=== PATIENT | female | born 1990 | race Hispanic/Latino ===

== ENCOUNTER 2016-09-03 08:12 | Emergency (ER) | payer OTHER ==
[2016-09-03 08:18] VITALS: BP 104/68; PULSE 81; RESP 18; TEMP 98.5; O2SAT 98
--- NOTE | 2016-09-03 08:40 | ED PDOC ---
HPI: Abdomen Time Seen by Provider: 09/03/16 08:21 Chief Complaint (Nursing): Abdominal Pain Chief Complaint (Provider): RUQ Abdominal Pain History Per: Patient History/Exam Limitations: no limitations Onset/Duration Of Symptoms: Days (x2) Current Symptoms Are (Timing): Still Present Location Of Pain/Discomfort: RUQ Associated Symptoms: Nausea. denies: Fever, Vomiting Additional Complaint(s): Jerri Dickinson is a 26 year old female with no past medical history that presents to the ED with a chief complaint of RUQ abdominal pain with associated nausea that she has been experiencing for the past two days. Patient states that her pain worsens after eating, and denies any vomiting or fever. Past Medical History Reviewed: Historical Data, Nursing Documentation, Vital Signs Vital Signs: Last Vital Signs Temp 98.5 F 09/03/16 08:33 Pulse 81 09/03/16 08:33 Resp 18 09/03/16 08:33 BP 104/68 09/03/16 08:33 Pulse Ox 98 09/03/16 08:43 - Medical History PMH: Depression - Surgical History Surgical History: (x 2) - Family History Family History: States: Unknown Family Hx - Home Medications Home Medications: Ambulatory Orders Medication Instructions Recorded Sertraline [Zoloft] 200 mg PO HS 10/19/14 Albuterol HFA [Ventolin HFA 90 2 puff IH [id number] PRN #1 bottle 03/12/15 mcg/actuation (8 g)] Azithromycin [Zithromax Z-Rush] 250 mg PO DAILY #4 tab 03/12/15 Ibuprofen [Motrin] 600 mg PO Q6 #20 tab 01/02/16 Benzocaine/Menthol [Sore Throat 1 each MM Q6 PRN #30 lozenge 05/19/16 Lozenge] guaiFENesin/Dextromethorphan 5 ml PO Q6 PRN #100 ml 05/19/16 [guaiFENesin-DM] Famotidine [Pepcid] 20 mg PO Q12 #20 tab 09/03/16 - Allergies Allergies/Adverse Reactions: Allergies Allergy/AdvReac Type Severity Reaction Status Date / Time metoclopramide HCl Allergy RASH Verified 09/03/16 08:32 [From [facility]] Review of Systems Constitutional: Negative for: Fever Gastrointestinal: Positive for: Nausea, Abdominal Pain (RUQ). Negative for: Vomiting Physical Exam - Reviewed Nursing Documentation Reviewed: Yes Vital Signs Reviewed: Yes - Physical Exam Appears: Positive for: Non-toxic, No Acute Distress Head Exam: Positive for: ATRAUMATIC, NORMOCEPHALIC Skin: Positive for: Normal Color, Warm Cardiovascular/Chest: Positive for: Regular Rate, Rhythm. Negative for: Murmur Respiratory: Positive for: Normal Breath Sounds. Negative for: Wheezing Gastrointestinal/Abdominal: Positive for: Tenderness (RUQ tenderness). Negative for: Rebound Back: Negative for: L CVA Tenderness, R CVA Tenderness Neurologic/Psych: Positive for: Alert, Oriented. Negative for: Motor/Sensory Deficits - Laboratory Results Result Diagrams: 09/03/16 08:53 09/03/16 08:53 - ECG O2 Sat by Pulse Oximetry: 98 (RA) Pulse Ox Interpretation: Normal - Progress Re-evaluation Time: 10:12 Condition: Improved Medical Decision Making Medical Decision Making: Impression: RUQ Abdominal Pain with Associated Nausea Plan: * CMP * CBC * Urine dipstick * Urine * US Abdomen (GB included) * Pepcid 20 mg IV * Reevaluation Scribe Attestation: Documented by Enid Valverde, acting as a scribe for Jay Weber MD. Provider Scribe Attestation: All medical record entries made by the Scribe were at my direction and personally dictated by me. I have reviewed the chart and agree that the record accurately reflects my personal performance of the history, physical exam, medical decision making, and the department course for this patient. I have also personally directed, reviewed, and agree with the discharge instructions and disposition. Disposition - Clinical Impression Clinical Impression: Gastritis - Patient ED Disposition Is Patient to be Admitted: No Counseled Patient/Family Regarding: Studies Performed, Diagnosis, Need For Followup, Rx Given - Disposition [facility]errals[facility] [Outside] Disposition: Routine/Home Disposition Time: 10:12 Condition: FAIR Prescriptions: Famotidine [Pepcid] 20 mg PO Q12 #20 tab Instructions: Gastritis (ED)
[2016-09-03 09:00] LABS: BASO % 0.6 % (0.0-2.0); EOS # 0.2 K/uL (0.0-0.7); EOS % 2.9 % (0.0-4.0); HEMATOCRIT 39.4 % (34.0-47.0); LYMPH # 1.2 K/uL (1.0-4.3); LYMPH % 15.3 % (20.0-40.0); MEAN CELL VOLUME 81.8 fl (81.0-99.0); MEAN CORPUSCULAR HEMOGLOBIN 27.3 pg (27.0-31.0); MEAN CORPUSCULAR HGB CONC 33.4 g/dL (33.0-37.0); MEAN PLATELET VOLUME 8.5 fl (7.2-11.7); MONO # 0.8 K/uL (0.0-0.8); MONO % 9.7 % (0.0-10.0); NEUT # 5.8 K/uL (1.8-7.0); NEUT % 71.5 % (50.0-75.0); NRBC % 0.1 % (0.0-0.0); RED CELL DISTRIBUTION WIDTH 12.2 % (11.5-14.5); WHITE BLOOD COUNT 8.1 K/uL (4.8-10.8)
[2016-09-03 09:17] LABS: ALB/GLOB RATIO 1.3 (1.0-2.1); ALKALINE PHOSPHATASE 53 U/L (38-126); ALT/SGPT 27 U/L (9-52); AST/SGOT 18 U/L (14-36); BILIRUBIN,TOTAL 0.3 mg/dl (0.2-1.3); BLOOD UREA NITROGEN 15 mg/dl (7-17); CALCIUM 8.8 mg/dL (8.4-10.2); CARBON DIOXIDE 27 mmol/L (22-30); CHLORIDE 103 mmol/L (98-107); GFR AFRICAN-AMERICAN > 60; GLUCOSE,RANDOM 86 mg/dL (65-105); POTASSIUM 3.9 MMOL/L (3.6-5.0); SODIUM 140 mmol/l (132-148); TOTAL PROTEIN 7.3 G/DL (6.3-8.2)
--- NOTE | 2016-09-03 10:08 | US ---
HISTORY: RUQ pain COMPARISON: None available. TECHNIQUE: Sonographic evaluation of the right upper quadrant of the abdomen. FINDINGS: LIVER: Measures 16 cm in length. Mildly echogenic liver may be seen in setting of hepatic parenchymal disease or fatty infiltration. No focal hepatic mass identified. The main portal vein appears patent with normal directional flow. No intrahepatic bile duct dilatation. GALLBLADDER: No gallstones. No gallbladder wall thickening or pericholecystic edema. Negative sonographic Akins's sign as assessed by the weight analyst. COMMON BILE DUCT: Measures 3 mm. PANCREAS: Not well visualized. RIGHT KIDNEY: Measures 10.7 x 5.9 x 4.9 cm. No obstructing calculus or hydronephrosis identified. AORTA: Limited visualization appears grossly unremarkable. IVC: Limited visualization appears grossly unremarkable. OTHER FINDINGS: None . IMPRESSION: Mildly echogenic liver may be seen in setting of hepatic parenchymal disease or fatty infiltration.
== END 2016-09-03 10:20 | disposition home or self-care (01) ==
LOC: H.ER 08:12
DX: K29.70 Gastritis, unspecified, without bleeding (principal); R11.0 Nausea

== ENCOUNTER 2016-12-27 12:22 | Emergency (ER) | payer OTHER ==
[2016-12-27 12:40] VITALS: BP 116/70; PULSE 71; RESP 20; TEMP 96; O2SAT 99
--- NOTE | 2016-12-27 13:31 | ED PDOC ---
HPI: General Adult Time Seen by Provider: 12/27/16 12:39 Chief Complaint (Nursing): Flu-like Symptoms Chief Complaint (Provider): Fatigue History Per: Patient History/Exam Limitations: no limitations Onset/Duration Of Symptoms: Days (past couple of months prior to arrival ) Current Symptoms Are (Timing): Still Present Additional Complaint(s): Jerri Dickinson is a 26 year old female with a past family history of Lupus and Thyroid disease presenting to the ED for an evaluation of increased fatigue, body aches, and headaches occurring for the past couple of months prior to arrival. The patient reports associated hair loss, chills at night, a rash localized to her hands and her face, and hematuria occurring last week. She also states she used to be active before, exercising frequently, but is not active anymore due to her increased fatigue. She denies any documented fever, cough, sneezing, rhinorrhea, ear pain, or sore throat. Of note, the patient has a follow up with her PMD next week. PMD: Willow Dunn MD Past Medical History Reviewed: Historical Data, Nursing Documentation, Vital Signs Vital Signs: Last Vital Signs Temp 96 F L 12/27/16 12:35 Pulse 71 12/27/16 12:35 Resp 20 12/27/16 12:35 BP 116/70 12/27/16 12:35 Pulse Ox 99 12/27/16 13:35 - Medical History PMH: Depression - Surgical History Surgical History: (x 2) - Family History Other Family History: Lupus and thyroid disease - Social History Current smoker - smoking cessation education provided: No Ex-Smoker (has not smoked in the last 12 months): No Alcohol: None Drugs: Denies - Home Medications Home Medications: Ambulatory Orders Medication Instructions Recorded Sertraline [Zoloft] 200 mg PO HS 10/19/14 Albuterol HFA [Ventolin HFA 90 2 puff IH [id number] PRN #1 bottle 03/12/15 mcg/actuation (8 g)] Azithromycin [Zithromax Z-Rush] 250 mg PO DAILY #4 tab 03/12/15 Ibuprofen [Motrin] 600 mg PO Q6 #20 tab 01/02/16 Benzocaine/Menthol [Sore Throat 1 each MM Q6 PRN #30 lozenge 05/19/16 Lozenge] guaiFENesin/Dextromethorphan 5 ml PO Q6 PRN #100 ml 05/19/16 [guaiFENesin-DM] Famotidine [Pepcid] 20 mg PO Q12 #20 tab 09/03/16 Vitamin B Complex [B Complex] 1 each PO DAILY #30 tablet NS 12/27/16 - Allergies Allergies/Adverse Reactions: Allergies Allergy/AdvReac Type Severity Reaction Status Date / Time metoclopramide HCl Allergy RASH Verified 09/03/16 08:32 [From [facility]] Review of Systems ROS Statement: Except As Marked, All Systems Reviewed And Found Negative Constitutional: Positive for: Chills, Other (fatigue; body aches). Negative for : Fever ENT: Negative for: Ear Pain, Nose Discharge (and no sneezing), Throat Pain Respiratory: Negative for: Cough Genitourinary Female: Positive for: Hematuria Skin: Positive for: Rash (localized to hands and face), Other (hair loss ) Neurological: Positive for: Headache Physical Exam - Reviewed Nursing Documentation Reviewed: Yes Vital Signs Reviewed: Yes - Physical Exam Appears: Positive for: Non-toxic, No Acute Distress Head Exam: Positive for: ATRAUMATIC, NORMOCEPHALIC Skin: Positive for: Rash (butterfly rash noted to face ) Cardiovascular/Chest: Positive for: Regular Rate, Rhythm Respiratory: Negative for: Respiratory Distress Neurologic/Psych: Positive for: Alert, Oriented - Laboratory Results Result Diagrams: 12/27/16 13:35 12/27/16 13:35 - ECG O2 Sat by Pulse Oximetry: 99 (RA) Pulse Ox Interpretation: Normal Medical Decision Making Medical Decision Making: Time: 12:39 Impression: Fatigue Plan: * Will complete CBC, CMP, and CPK due to familial history of Lupus and Thyroid disease. Collect urine due to noticing hematuria and muscle aches. * Reevaluation Upon reevaluation, all labs are normal. Discussed with patient to maintain follow up appointment with PMD. Given Vitamin B complex. Scribe Attestation: Documented by Yulia Jacobson, acting as a scribe for Marlene Em PA-C. Provider Scribe Attestation: All medical record entries made by the Scribe were at my direction and personally dictated by me. I have reviewed the chart and agree that the record accurately reflects my personal performance of the history, physical exam, medical decision making, and the department course for this patient. I have also personally directed, reviewed, and agree with the discharge instructions and disposition. Disposition - Clinical Impression Clinical Impression: Generalized muscle weakness - Disposition Referrals: [facility] [Outside] Disposition Time: 14:00 Condition: STABLE Prescriptions: Vitamin B Complex [B Complex] 1 each PO DAILY #30 tablet NS Instructions: Autoimmune Thyroid Disorders (ED) Forms: [employer] ([place])
[2016-12-27 13:49] LABS: BASO # 0.1 K/uL (0.0-0.2); BASO % 0.7 % (0.0-2.0); EOS # 0.2 K/uL (0.0-0.7); EOS % 2.6 % (0.0-4.0); HEMATOCRIT 42.7 % (34.0-47.0); LYMPH # 1.8 K/uL (1.0-4.3); LYMPH % 21.3 % (20.0-40.0); MEAN CORPUSCULAR HEMOGLOBIN 27.3 pg (27.0-31.0); MEAN CORPUSCULAR HGB CONC 33.3 g/dL (33.0-37.0); MEAN PLATELET VOLUME 8.5 fl (7.2-11.7); MONO # 0.7 K/uL (0.0-0.8); MONO % 8.6 % (0.0-10.0); NEUT # 5.5 K/uL (1.8-7.0); NEUT % 66.8 % (50.0-75.0); RED CELL DISTRIBUTION WIDTH 12.6 % (11.5-14.5); WHITE BLOOD COUNT 8.2 K/uL (4.8-10.8)
[2016-12-27 13:55] LABS: ALB/GLOB RATIO 1.4 (1.0-2.1); ALKALINE PHOSPHATASE 45 U/L (38-126); ALT/SGPT 27 U/L (9-52); AST/SGOT 22 U/L (14-36); BILIRUBIN,TOTAL 0.3 mg/dl (0.2-1.3); BLOOD UREA NITROGEN 18 mg/dl (7-17); CALCIUM 9.6 mg/dL (8.4-10.2); CARBON DIOXIDE 24 mmol/L (22-30); CHLORIDE 105 mmol/L (98-107); GFR AFRICAN-AMERICAN > 60; GLUCOSE,RANDOM 84 mg/dL (65-105); SODIUM 143 mmol/l (132-148); TOTAL PROTEIN 7.7 G/DL (6.3-8.2)
== END 2016-12-27 14:23 | disposition home or self-care (01) ==
LOC: H.ER 12:22
DX: M62.81 Muscle weakness (generalized) (principal); M32.9 Systemic lupus erythematosus, unspecified; E07.9 Disorder of thyroid, unspecified

== ENCOUNTER 2017-04-11 08:26 | Emergency (ER) | payer OTHER ==
[2017-04-11 08:28] VITALS: BMI 26.4
[2017-04-11] MEDS ORDERED: Sodium Chloride 0.9% 1,000 ML IV STA (10:04)
--- NOTE | 2017-04-11 10:08 | ED PDOC ---
HPI: General Adult Time Seen by Provider: 04/11/17 09:08 Chief Complaint (Nursing): Flu-like Symptoms Chief Complaint (Provider): Flu-like symptoms History Per: Patient History/Exam Limitations: no limitations Onset/Duration Of Symptoms: Days (2 days ago) Current Symptoms Are (Timing): Still Present Additional Complaint(s): 27 y/o female presents to the ED complaining of fever, sore throat, cough, and nausea, onset of 2 days. Of note, patient did not take Motrin or Tylenol today. pcp: Willow Dunn Past Medical History Reviewed: Historical Data, Nursing Documentation, Vital Signs Vital Signs: Last Vital Signs Temp 98.9 F 04/11/17 16:12 Pulse 89 04/11/17 16:12 Resp 19 04/11/17 16:12 BP 132/74 04/11/17 16:12 Pulse Ox 98 04/11/17 16:12 - Medical History PMH: Depression - Surgical History Surgical History: (x 2) - Family History Family History: States: Unknown Family Hx - Social History Current smoker - smoking cessation education provided: No Ex-Smoker (has not smoked in the last 12 months): No Alcohol: None Drugs: Denies - Home Medications Home Medications: Ambulatory Orders Medication Instructions Recorded Sertraline [Zoloft] 200 mg PO HS 10/19/14 Albuterol HFA [Ventolin HFA 90 2 puff IH [id number] PRN #1 bottle 03/12/15 mcg/actuation (8 g)] Azithromycin [Zithromax Z-Rush] 250 mg PO DAILY #4 tab 03/12/15 Ibuprofen [Motrin] 600 mg PO Q6 #20 tab 01/02/16 Benzocaine/Menthol [Sore Throat 1 each MM Q6 PRN #30 lozenge 05/19/16 Lozenge] guaiFENesin/Dextromethorphan 5 ml PO Q6 PRN #100 ml 05/19/16 [guaiFENesin-DM] Famotidine [Pepcid] 20 mg PO Q12 #20 tab 09/03/16 Vitamin B Complex [B Complex] 1 each PO DAILY #30 tablet NS 12/27/16 Naproxen [Naprosyn] 500 mg PO BID PRN #15 tablet 04/11/17 Oseltamivir Phosphate [Tamiflu] 75 mg PO BID #9 capsule 04/11/17 Promethazine/Codeine 5 ml PO Q6 PRN #100 ml 04/11/17 [Phenergan/Codeine Oral Syrup] - Allergies Allergies/Adverse Reactions: Allergies Allergy/AdvReac Type Severity Reaction Status Date / Time metoclopramide HCl Allergy RASH Verified 04/11/17 08:53 [From [facility]] Review of Systems ROS Statement: Except As Marked, All Systems Reviewed And Found Negative Constitutional: Positive for: Fever ENT: Positive for: Throat Pain Respiratory: Positive for: Cough Gastrointestinal: Positive for: Nausea Physical Exam - Reviewed Nursing Documentation Reviewed: Yes Vital Signs Reviewed: Yes - Physical Exam Appears: Positive for: Non-toxic, No Acute Distress Head Exam: Positive for: ATRAUMATIC Skin: Positive for: Normal Color, Warm Eye Exam: Positive for: Normal appearance, EOMI, PERRL ENT: Positive for: Normal ENT Inspection Neck: Positive for: Normal, Painless ROM, Supple Cardiovascular/Chest: Positive for: Regular Rate, Rhythm, Tachycardia. Negative for: Murmur Respiratory: Positive for: Normal Breath Sounds. Negative for: Respiratory Distress Gastrointestinal/Abdominal: Positive for: Normal Exam, Soft. Negative for: Tenderness Back: Positive for: Normal Inspection Extremity: Positive for: Normal ROM. Negative for: Pedal Edema, Deformity Neurologic/Psych: Positive for: Alert, Oriented. Negative for: Motor/Sensory Deficits - Laboratory Results Result Diagrams: 04/11/17 10:15 04/11/17 10:15 - ECG O2 Sat by Pulse Oximetry: 97 (RA) Pulse Ox Interpretation: Normal - Radiology X-Ray: Interpreted by Me X-Ray Interpretation: No Acute Disease Medical Decision Making Medical Decision Making: Time: --10:03 Impression: --Flu-like symptoms Plan: --labs --Ed Urine --Chest X-ray --Motin 600mg PO --IV Fluids --Zofran Inj 4 mg IV --Influenza A B --Rapid Strep Group Time: 12:44 Chest X-Ray FINDINGS: LUNGS: No active pulmonary disease. PLEURA: No significant pleural effusion identified. No pneumothorax apparent. CARDIOVASCULAR: Normal. OSSEOUS STRUCTURES: No significant abnormalities. VISUALIZED UPPER ABDOMEN: Normal. OTHER FINDINGS: None. IMPRESSION: No interval acute cardiopulmonary disease appreciated. Pt states she had blood-tinged emesis, reevaluation reveals minimal tenderness LUQ/LLQ, no guarding. CT ordered. Time: 15:00 Patient will be signed out to Dr. Moe Weems, pending CT and reevaluation. Scribe Attestation: Documented by Juancho Alberts and Suzanne Armijo acting as scribes for Carmenza Hoang MD. Provider Scribe Attestation: All medical record entries made by the Scribe were at my direction and personally dictated by me. I have reviewed the chart and agree that the record accurately reflects my personal performance of the history, physical exam, medical decision making, and the department course for this patient. I have also personally directed, reviewed, and agree with the discharge instructions and disposition Disposition - Clinical Impression Clinical Impression: Influenza B - Disposition Referrals: [facility] [Outside] Disposition: Transfer of Care Disposition Time: 15:00 Condition: GOOD Additional Instructions: Drink plenty of fluids. Follow up with your PCP in 2-3 days. Prescriptions: Naproxen [Naprosyn] 500 mg PO BID PRN #15 tablet PRN Reason: Pain, Moderate (4-7) Oseltamivir Phosphate [Tamiflu] 75 mg PO BID #9 capsule Promethazine/Codeine [Phenergan/Codeine Oral Syrup] 5 ml PO Q6 PRN #100 ml PRN Reason: Cough Instructions: Influenza (ED) Patient Signed Over To: Moe Weems (Pending CT )
[2017-04-11 10:29] LABS: BASO % 0.4 % (0.0-2.0); EOS # 0.1 K/uL (0.0-0.7); HEMOGLOBIN 13.3 g/dL (12.0-16.0); LYMPH # 0.7 K/uL (1.0-4.3); LYMPH % 10.3 % (20.0-40.0); MEAN CELL VOLUME 83.6 fl (81.0-99.0); MEAN CORPUSCULAR HEMOGLOBIN 27.9 pg (27.0-31.0); MEAN CORPUSCULAR HGB CONC 33.4 g/dL (33.0-37.0); MEAN PLATELET VOLUME 8.7 fl (7.2-11.7); MONO # 0.8 K/uL (0.0-0.8); MONO % 10.7 % (0.0-10.0); NEUT # 5.7 K/uL (1.8-7.0); NEUT % 77.6 % (50.0-75.0); NRBC % 0.1 % (0.0-0.0); RBC 4.77 Mil/uL (3.80-5.20); RED CELL DISTRIBUTION WIDTH 12.9 % (11.5-14.5); WHITE BLOOD COUNT 7.3 K/uL (4.8-10.8)
[2017-04-11 11:05] LABS: ALB/GLOB RATIO 1.3 (1.0-2.1); ALT/SGPT 33 U/L (9-52); AST/SGOT 22 U/L (14-36); BLOOD UREA NITROGEN 10 mg/dl (7-17); CALCIUM 8.7 mg/dL (8.4-10.2); GFR AFRICAN-AMERICAN > 60; GFR NON-AFRICAN AMERICAN > 60
[2017-04-11 11:25] VITALS: RESP 19
[2017-04-11] MEDS ORDERED: Acetaminophen-Codeine 300/30 mg Tab PO STA (11:28)
[2017-04-11] MEDS ORDERED: Iohexol 300 100 ML IJ ONE (12:39)
[2017-04-11] MEDS ORDERED: Sodium Chloride 0.9% 50 ML IV ONE (12:39)
[2017-04-11] MEDS ORDERED: Morphine 4 MG/ML VIAL ONE ×2 (12:46→13:13)
--- NOTE | 2017-04-11 12:46 | RAD ---
HISTORY: Cough COMPARISON: Chest radiographs 03/12/2015. TECHNIQUE: Chest PA and lateral FINDINGS: LUNGS: No active pulmonary disease. PLEURA: No significant pleural effusion identified. No pneumothorax apparent. CARDIOVASCULAR: Normal. OSSEOUS STRUCTURES: No significant abnormalities. VISUALIZED UPPER ABDOMEN: Normal. OTHER FINDINGS: None. IMPRESSION: No interval acute cardiopulmonary disease appreciated.
[2017-04-11] MEDS ORDERED: Morphine 4 MG/ML VIAL IV STA (13:07)
--- NOTE | 2017-04-11 15:33 | ED PDOC ---
- Laboratory Results Result Diagrams: 04/11/17 10:15 04/11/17 10:15 - ECG O2 Sat by Pulse Oximetry: 97 (RA) - Progress Re-evaluation Time: 15:52 Condition: Re-examined, Improved Medical Decision Making Medical Decision Making: Time: 15:00 Patient is signed to me by Dr. Carmenza Hoang, pending CT and reevaluation. Time: 15:45 CT Abdomen/Pelvis: FINDINGS: LOWER THORAX: Unremarkable. LIVER: There 1 or 2 tiny lesions seen in the dome on right lobe liver too small to characterize the liver is not enlarged. Mild diffuse fatty infiltration liver is encountered. GALLBLADDER AND BILE DUCTS: Unremarkable. PANCREAS: Unremarkable. No gross lesion or ductal dilatation. SPLEEN: Unremarkable. ADRENALS: Unremarkable. No mass. KIDNEYS AND URETERS: Unremarkable. No hydronephrosis. No solid mass. VASCULATURE: Unremarkable. No aortic aneurysm. BOWEL: Stomach is distended with retained food moderately. No obstruction. No gross mural thickening. APPENDIX: Normal appendix. PERITONEUM: Unremarkable. No free fluid. No free air. LYMPH NODES: Unremarkable. No enlarged lymph nodes. BLADDER: Unremarkable. REPRODUCTIVE: There is a 1.9 x 1.6 cm left adnexal cyst with the uterus also appearing somewhat enlarged without focal mass. BONES: No acute fracture. OTHER FINDINGS: None. IMPRESSION: 1. Hepatic steatosis with 2 tiny lucencies too small to characterize in the liver. 2. 1.9 cm left adnexal cyst. Time: 1550 Patient is comfortably sleeping. Patient is significantly improved. No vomiting. She agrees with the discharge at this time. Scribe Attestation: Documented by Suzanne Armijo, acting as a scribe for Moe Weems MD Provider Scribe Attestation: All medical record entries made by the Scribe were at my direction and personally dictated by me. I have reviewed the chart and agree that the record accurately reflects my personal performance of the history, physical exam, medical decision making, and the department course for this patient. I have also personally directed, reviewed, and agree with the discharge instructions and disposition. Disposition - Clinical Impression Clinical Impression: Influenza B - POA Present On Arrival: None - Disposition Referrals: [facility] [Outside] Disposition: Routine/Home Disposition Time: 15:52 Condition: GOOD Additional Instructions: Drink plenty of fluids. Follow up with your PCP in 2-3 days. Prescriptions: Naproxen [Naprosyn] 500 mg PO BID PRN #15 tablet PRN Reason: Pain, Moderate (4-7) Oseltamivir Phosphate [Tamiflu] 75 mg PO BID #9 capsule Promethazine/Codeine [Phenergan/Codeine Oral Syrup] 5 ml PO Q6 PRN #100 ml PRN Reason: Cough Instructions: Influenza (ED)
--- NOTE | 2017-04-11 15:47 | CT ---
PROCEDURE: CT Abdomen and Pelvis with contrast HISTORY: L sided abd pain COMPARISON: None. TECHNIQUE: Contrast dose: Omnipaque 300, 98 cc Radiation dose: Total exam DLP = 657.35 mGy-cm. This CT exam was performed using one or more of the following dose reduction techniques: Automated exposure control, adjustment of the mA and/or kV according to patient size, and/or use of iterative reconstruction technique. FINDINGS: LOWER THORAX: Unremarkable. LIVER: There 1 or 2 tiny lesions seen in the dome on right lobe liver too small to characterize the liver is not enlarged. Mild diffuse fatty infiltration liver is encountered. GALLBLADDER AND BILE DUCTS: Unremarkable. PANCREAS: Unremarkable. No gross lesion or ductal dilatation. SPLEEN: Unremarkable. ADRENALS: Unremarkable. No mass. KIDNEYS AND URETERS: Unremarkable. No hydronephrosis. No solid mass. VASCULATURE: Unremarkable. No aortic aneurysm. BOWEL: Stomach is distended with retained food moderately. No obstruction. No gross mural thickening. APPENDIX: Normal appendix. PERITONEUM: Unremarkable. No free fluid. No free air. LYMPH NODES: Unremarkable. No enlarged lymph nodes. BLADDER: Unremarkable. REPRODUCTIVE: There is a 1.9 x 1.6 cm left adnexal cyst with the uterus also appearing somewhat enlarged without focal mass. BONES: No acute fracture. OTHER FINDINGS: None. IMPRESSION: 1. Hepatic steatosis with 2 tiny lucencies too small to characterize in the liver. 2. 1.9 cm left adnexal cyst.
[2017-04-11 16:13] VITALS: BP 132/74; PULSE 89; TEMP 98.9
[2017-04-12 16:34] VITALS: O2SAT 97
== END 2017-04-11 16:16 | disposition home or self-care (01) ==
LOC: H.ER 08:26
DX: K76.0 Fatty (change of) liver, not elsewhere classified (principal); N83.8 Other noninflammatory disorders of ovary, fallopian tube and broad ligament; J10.1 Influenza due to other identified influenza virus with other respiratory manifestations; F32.9 Major depressive disorder, single episode, unspecified; R11.0 Nausea
CPT/HCPCS: 71046; 74177; 80053; 81025; 85025; 87070; 87430; 87804; 96374; 96375; 99285; J2270; J2405; J2550; J7040; Q9967

== ENCOUNTER 2017-04-13 14:30 | Emergency (ER) | payer OTHER ==
[2017-04-13 14:31] VITALS: BMI 26.4
[2017-04-13 14:37] VITALS: BP 129/84; PULSE 94; RESP 18; TEMP 98; O2SAT 98
[2017-04-13] MEDS ORDERED: Promethazine/Cod 6.25mg-10mg/5ml Syr UD PO STA (15:16)
--- NOTE | 2017-04-13 15:27 | ED PDOC ---
HPI: General Adult Time Seen by Provider: 04/13/17 15:03 Chief Complaint (Nursing): GI Problem Chief Complaint (Provider): Flu-like Symptoms History Per: Patient History/Exam Limitations: no limitations Onset/Duration Of Symptoms: Days (x 4) Current Symptoms Are (Timing): Still Present Additional Complaint(s): 27 year old female presents to the Emergency Department complaining of persistent cough for the past 4 days. Was seen here 2 days ago, diagnosed with the flu, and discharged home with Promethazine/Codeine and Tamiflu. She reports taking the Tamiflu as prescribed but states she ran out of the Promethazine. Now complaining of worsening throat pain and difficulty swallowing, as well as spitting up some blood (after a coughing fit). Patient requesting a refill for the promethazine. There are no changes in symptoms from previous visit. She continues to have nausea, vomiting, and some abdominal discomfort. CT Abdomen/ Pelvis from her prior visit was negative. Has bodyaches. No dizziness, headaches. PMD: Provider TBD Past Medical History Reviewed: Historical Data, Nursing Documentation, Vital Signs Vital Signs: Last Vital Signs Temp 98 F 04/13/17 14:33 Pulse 94 H 04/13/17 14:33 Resp 18 04/13/17 14:33 BP 129/84 04/13/17 14:33 Pulse Ox 98 04/13/17 15:36 - Medical History PMH: No Chronic Diseases, Depression - Surgical History Surgical History: (x 2) - Family History Family History: States: Unknown Family Hx - Living Arrangements Living Arrangements: With Family - Social History Current smoker - smoking cessation education provided: No Alcohol: None Drugs: Denies - Home Medications Home Medications: Ambulatory Orders Medication Instructions Recorded Sertraline [Zoloft] 200 mg PO HS 10/19/14 Albuterol HFA [Ventolin HFA 90 2 puff IH [id number] PRN #1 bottle 03/12/15 mcg/actuation (8 g)] Azithromycin [Zithromax Z-Rush] 250 mg PO DAILY #4 tab 03/12/15 Ibuprofen [Motrin] 600 mg PO Q6 #20 tab 01/02/16 Benzocaine/Menthol [Sore Throat 1 each MM Q6 PRN #30 lozenge 05/19/16 Lozenge] guaiFENesin/Dextromethorphan 5 ml PO Q6 PRN #100 ml 05/19/16 [guaiFENesin-DM] Famotidine [Pepcid] 20 mg PO Q12 #20 tab 09/03/16 Vitamin B Complex [B Complex] 1 each PO DAILY #30 tablet NS 12/27/16 Naproxen [Naprosyn] 500 mg PO BID PRN #15 tablet 04/11/17 Oseltamivir Phosphate [Tamiflu] 75 mg PO BID #9 capsule 04/11/17 Promethazine/Codeine 5 ml PO Q6 PRN #100 ml 04/11/17 [Phenergan/Codeine Oral Syrup] Benzonatate [Tessalon Perles] 100 mg PO BID PRN 5 Days sgl 04/13/17 Ibuprofen [Motrin] 600 mg PO TID 7 Days tab 04/13/17 Promethazine/Codeine 5 ml PO Q6 PRN 3 Days udc 04/13/17 [Phenergan/Codeine Oral Syrup] - Allergies Allergies/Adverse Reactions: Allergies Allergy/AdvReac Type Severity Reaction Status Date / Time metoclopramide HCl Allergy RASH Verified 04/11/17 08:53 [From [facility]] Review of Systems ROS Statement: Except As Marked, All Systems Reviewed And Found Negative Constitutional: Positive for: Weakness (generalized weakness). Negative for: Fever ENT: Positive for: Throat Pain, Other (Difficulty swallowing) Cardiovascular: Negative for: Chest Pain Respiratory: Positive for: Cough, Other (spit up some blood after coughing fit) . Negative for: Shortness of Breath Gastrointestinal: Positive for: Nausea, Vomiting, Abdominal Pain. Negative for : Diarrhea Neurological: Positive for: Weakness Physical Exam - Reviewed Nursing Documentation Reviewed: Yes Vital Signs Reviewed: Yes - Physical Exam Appears: Positive for: Non-toxic, No Acute Distress Head Exam: Positive for: ATRAUMATIC, NORMOCEPHALIC Skin: Positive for: Normal Color, Warm, Dry Eye Exam: Positive for: EOMI, Normal appearance, PERRL ENT: Positive for: Nasal Congestion. Negative for: Pharyngeal Erythema, Tonsillar Exudate Neck: Positive for: Normal, Painless ROM, Supple Cardiovascular/Chest: Positive for: Regular Rate, Rhythm, Chest Non Tender. Negative for: Murmur Respiratory: Positive for: Normal Breath Sounds. Negative for: Accessory Muscle Use, Rhonchi, Wheezing, Respiratory Distress Gastrointestinal/Abdominal: Positive for: Normal Exam, Soft. Negative for: Tenderness Back: Positive for: Normal Inspection. Negative for: L CVA Tenderness, R CVA Tenderness, Vertebral Tenderness Extremity: Positive for: Normal ROM. Negative for: Tenderness, Pedal Edema, Deformity Neurologic/Psych: Positive for: Alert, Oriented (x3). Negative for: Motor/ Sensory Deficits - ECG O2 Sat by Pulse Oximetry: 98 (RA) Pulse Ox Interpretation: Normal - Progress ED Course And Treament: 1600: Stable. AAOx3. Pain free. Tolerated po. Demanding promethazine with codeine. Will rx accordingly. Reviewed pt. PM Aware data for narcotics use. No abuse noted. Pt. advised risk of addiction and from narcotic use. Medical Decision Making Medical Decision Making: Clinical Impression: Influenza, Pain Time: 15:16 Initial Plan: --Toradol 15 mg IM --Promethazine/Codeine 5 ml PO Stable for discharge. Will provide prescriptions for Motrin, Promethazine/ Codeine, and Tessalon Perles. Counseled regarding diagnosis and the need for follow up with PMD. There is agreement to discharge plan. Return if symptoms persist or worsen. Scribe Attestation: Documented by Kandi Kirk, acting as a scribe for Luan Michel MD Provider Scribe Attestation: All medical record entries made by the Scribe were at my direction and personally dictated by me. I have reviewed the chart and agree that the record accurately reflects my personal performance of the history, physical exam, medical decision making, and the department course for this patient. I have also personally directed, reviewed, and agree with the discharge instructions and disposition Disposition - Clinical Impression Clinical Impression: Influenza, Pain - Patient ED Disposition Is Patient to be Admitted: No - Disposition Referrals: [facility] [Outside] - 04/15/17 Disposition: Routine/Home Disposition Time: 16:00 Condition: STABLE Additional Instructions: You have been made aware of the addictive potential of opiates like codeine. You can from the overuse of this medication. Return if not better in 3 days. Prescriptions: Benzonatate [Tessalon Perles] 100 mg PO BID PRN 5 Days sgl PRN Reason: Cough Ibuprofen [Motrin] 600 mg PO TID 7 Days tab Promethazine/Codeine [Phenergan/Codeine Oral Syrup] 5 ml PO Q6 PRN 3 Days udc PRN Reason: Pain, Moderate (4-7) Instructions: Influenza (ED), Opioid Pain Management (ED) Forms: [employer] (Czech)
[2017-04-13] MEDS ORDERED: Promethazine/Cod 6.25mg-10mg/5ml Syr UD ONE (15:42)
== END 2017-04-13 15:56 | disposition home or self-care (01) ==
LOC: H.ER 14:30
DX: J11.1 Influenza due to unidentified influenza virus with other respiratory manifestations (principal); R13.10 Dysphagia, unspecified
CPT/HCPCS: 96372; 99283; J1885

== ENCOUNTER 2017-09-01 17:54 | Emergency (ER) | payer OTHER ==
[2017-09-01 17:54] VITALS: BMI 26.4
[2017-09-01 18:02] VITALS: RESP 18
[2017-09-01] MEDS ORDERED: Sodium Chloride 0.9% 1,000 ML IV STA ×2 (18:26→19:55)
[2017-09-01 18:57] LABS: BASO # 0.1 K/uL (0.0-0.2); BASO % 0.8 % (0.0-2.0); EOS # 0.4 K/uL (0.0-0.7); EOS % 4.4 % (0.0-4.0); HEMOGLOBIN 13.9 g/dL (12.0-16.0); LYMPH % 19.4 % (20.0-40.0); MEAN CELL VOLUME 82.1 fl (81.0-99.0); MEAN CORPUSCULAR HEMOGLOBIN 28.2 pg (27.0-31.0); MEAN CORPUSCULAR HGB CONC 34.4 g/dL (33.0-37.0); MEAN PLATELET VOLUME 8.4 fl (7.2-11.7); NEUT # 6.6 K/uL (1.8-7.0); NEUT % 65.4 % (50.0-75.0); RBC 4.92 Mil/uL (3.80-5.20); RED CELL DISTRIBUTION WIDTH 12.6 % (11.5-14.5); WHITE BLOOD COUNT 10.1 K/uL (4.8-10.8)
[2017-09-01 19:03] LABS: SQUAMOUS EPITHIAL 4 /hpf (0-5); URINE AMORPHOUS SEDIMENT RARE /ul (<OCC); URINE BACTERIA RARE (<OCC); URINE BILIRUBIN NEGATIVE (NEGATIVE); URINE BLOOD NEGATIVE (NEGATIVE); URINE CLARITY CLOUDY (Clear); URINE COLOR YELLOW (YELLOW); URINE GLUCOSE (UA) NEG (Normal); URINE LEUKOCYTE ESTERASE NEG Leu/uL (Negative); URINE PROTEIN NEGATIVE (NEGATIVE); URINE UROBILINOGEN 0.2-1.0 mg/dL (0.2-1.0)
[2017-09-01 19:09] LABS: ALB/GLOB RATIO 1.3 (1.0-2.1); ALBUMIN 4.2 g/dL (3.5-5.0); ALT/SGPT 31 U/L (9-52); AST/SGOT 25 U/L (14-36); BLOOD UREA NITROGEN 19 mg/dl (7-17); CALCIUM 9.1 mg/dL (8.4-10.2); GFR AFRICAN-AMERICAN > 60; GFR NON-AFRICAN AMERICAN > 60
[2017-09-01 19:11] LABS: PROTHROMBIN TIME 10.4 Seconds (9.8-13.1)
[2017-09-01 19:12] LABS: INR 0.9 (0.9-1.2); PARTIAL THROMBOPLASTIN TIME 28.6 Seconds (25.6-37.1)
--- NOTE | 2017-09-01 19:20 | ED PDOC ---
Syncope/Near Syncope/Dizziness Time Seen by Provider: 09/01/17 18:12 Chief Complaint (Nursing): Syncope Chief Complaint (Provider): Vertigo History Per: Patient History/Exam Limitations: no limitations Onset/Duration Of Symptoms: Hrs (10am) Activity At Onset Of Symptoms: Walking Additional Complaint(s): 27 year old female presents to the ED complaining of feeling dizziness today at 10am. Patient was walking and felt light headedness. She passed out for 2 minutes as witnessed by mother. When EMS arrived, patient refused to go to the hospital. When she went home, she felt dizzy again. She states she has been on her period for 3 days and is bleeding normally. Denies seizure activity or ictal period. Also denies headache, visual changes, abdominal pain, chest pain, or prolonged dizziness in the past. PMD: No Provider Past Medical History Reviewed: Historical Data, Nursing Documentation, Vital Signs Vital Signs: Last Vital Signs Temp 98.3 F 09/01/17 17:58 Pulse 91 H 09/01/17 17:58 Resp 18 09/01/17 17:58 BP 112/75 09/01/17 17:58 Pulse Ox 100 09/01/17 17:58 - Medical History PMH: Depression - Surgical History Surgical History: (x 2) - Family History Family History: States: Unknown Family Hx - Social History Current smoker - smoking cessation education provided: No Alcohol: None Drugs: Denies - Immunization History Hx Tetanus Toxoid Vaccination: No Hx Influenza Vaccination: No Hx Pneumococcal Vaccination: No - Home Medications Home Medications: Ambulatory Orders Medication Instructions Recorded Sertraline [Zoloft] 200 mg PO HS 10/19/14 Albuterol HFA [Ventolin HFA 90 2 puff IH [id number] PRN #1 bottle 03/12/15 mcg/actuation (8 g)] Azithromycin [Zithromax Z-Rush] 250 mg PO DAILY #4 tab 03/12/15 Ibuprofen [Motrin] 600 mg PO Q6 #20 tab 01/02/16 Benzocaine/Menthol [Sore Throat 1 each MM Q6 PRN #30 lozenge 05/19/16 Lozenge] guaiFENesin/Dextromethorphan 5 ml PO Q6 PRN #100 ml 05/19/16 [guaiFENesin-DM] Famotidine [Pepcid] 20 mg PO Q12 #20 tab 09/03/16 Vitamin B Complex [B Complex] 1 each PO DAILY #30 tablet NS 12/27/16 Naproxen [Naprosyn] 500 mg PO BID PRN #15 tablet 04/11/17 Oseltamivir Phosphate [Tamiflu] 75 mg PO BID #9 capsule 04/11/17 Promethazine/Codeine 5 ml PO Q6 PRN #100 ml 04/11/17 [Phenergan/Codeine Oral Syrup] Benzonatate [Tessalon Perles] 100 mg PO BID PRN 5 Days sgl 04/13/17 Ibuprofen [Motrin] 600 mg PO TID 7 Days tab 04/13/17 Promethazine/Codeine 5 ml PO Q6 PRN 3 Days udc 04/13/17 [Phenergan/Codeine Oral Syrup] Meclizine [Meclizine*] 25 mg PO Q6 PRN #20 tab 09/01/17 Naproxen [Naprosyn] 500 mg PO BID PRN #15 tablet 09/01/17 - Allergies Allergies/Adverse Reactions: Allergies Allergy/AdvReac Type Severity Reaction Status Date / Time metoclopramide HCl Allergy RASH Verified 04/11/17 08:53 [[facility] Review of Systems ROS Statement: Except As Marked, All Systems Reviewed And Found Negative Eyes: Negative for: Vision Change Cardiovascular: Negative for: Chest Pain Gastrointestinal: Negative for: Abdominal Pain Neurological: Positive for: Dizziness. Negative for: Headache Physical Exam - Reviewed Nursing Documentation Reviewed: Yes Vital Signs Reviewed: Yes - Physical Exam Appears: Positive for: Well, Non-toxic, No Acute Distress Head Exam: Positive for: ATRAUMATIC, NORMAL INSPECTION, NORMOCEPHALIC Skin: Positive for: Normal Color, Warm, Dry Eye Exam: Positive for: EOMI, Normal appearance, PERRL ENT: Positive for: Normal ENT Inspection Neck: Positive for: Normal, Painless ROM, Supple. Negative for: Decreased ROM Cardiovascular/Chest: Positive for: Regular Rate, Rhythm. Negative for: Murmur Respiratory: Positive for: Normal Breath Sounds. Negative for: Decreased Breath Sounds, Accessory Muscle Use, Respiratory Distress Gastrointestinal/Abdominal: Positive for: Normal Exam, Bowel Sounds, Soft. Negative for: Tenderness, Guarding, Rebound Extremity: Positive for: Normal ROM. Negative for: Tenderness, Pedal Edema, Deformity Neurologic/Psych: Positive for: Alert, armature connector II-XII, Oriented (x3), Gait (Steady) . Negative for: Motor/Sensory Deficits, Aphasia, Facial Droop - Laboratory Results Result Diagrams: 09/01/17 18:53 09/01/17 18:53 - ECG O2 Sat by Pulse Oximetry: 100 (RA) Pulse Ox Interpretation: Normal Medical Decision Making Medical Decision Making: Time: 1825 Initial Impression: dizziness Initial Plan: --Head w/o Contrast CT --EKG --CMP --ED Urine --ED Urine Dipstick --CBC w/ Differential --D-Dimer --PTT --Prothrombin Time --Glucose, POC Routine --Normal Saline 1000 mls/hr --Ortho BP --Urinalysis --Reevaluation 19:50 Pt c/o chest pain under L breast, worse with breathing in and out and with palpation, troponin and repeat EKG ordered. EKG #2: SR @ 78, short KS. Accession No. : [id number] Patient Name / ID : ORI WORTHY / [id number] Exam Date : 09/01/2017 19:22:16 ( Approved ) Study Comment : Sex / Age : F / 27Y Creator : Luis Garsia MD Dictator : Luis Garsia MD Land Developer : Director Of Financial Planning : Luis Garsia MD Approver2 : Report Date : 09/02/2017 09:14:31 My Comment : PROCEDURE: CT HEAD WITHOUT CONTRAST. HISTORY: Dizziness, syncope COMPARISON: Noncontrast head CT 02/28/2014. TECHNIQUE: Axial computed tomography images were obtained through the head/brain without intravenous contrast. Radiation dose: Total exam DLP = 731.28 mGy-cm. This CT exam was performed using one or more of the following dose reduction techniques: Automated exposure control, adjustment of the mA and/or kV according to patient size, and/or use of iterative reconstruction technique. FINDINGS: HEMORRHAGE: No intracranial hemorrhage. BRAIN: Stable, normal hsieh-white matter differentiation and density are appreciated throughout the cerebrum and cerebellum with the brainstem appearing unremarkable as well. There is no mass effect. There is no suspicious extra- axial fluid collection and the midline brain anatomy appears diffusely unremarkable. VENTRICLES: Unremarkable. No hydrocephalus. CALVARIUM: Unremarkable. PARANASAL SINUSES: Unremarkable as visualized. No significant inflammatory changes. MASTOID AIR CELLS: Unremarkable as visualized. No inflammatory changes. OTHER FINDINGS: Incidental bilateral external auditory canal soft tissue likely reflecting cerumen is identified. Clinically correlate. IMPRESSION: Stable unremarkable noncontrast head CT as compared prior head CT 02/28/2014. Concordant preliminary report from [facility], 09/01/2017. Accession No. : [id number] Patient Name / ID : ORI WORTHY / [id number] Exam Date : 09/01/2017 21:09:26 ( Approved ) Study Comment : Sex / Age : F / 27Y Creator : Luis Garsia MD Dictator : Luis Garsia MD Land Developer : Director Of Financial Planning : Luis Garsia MD Approver2 : Report Date : 09/02/2017 09:43:02 My Comment : PROCEDURE: CT Chest with contrast (Pulmonary Angiogram) HISTORY: CP COMPARISON: None available. TECHNIQUE: Axial computed tomography images were obtained of the chest in the pulmonary arterial phase of enhancement. Coronal and sagittal reformatted images were created and reviewed. Intravenous contrast dose: Visipaque 320, 80 cc Radiation dose: Total exam DLP = 731.28 mGy-cm. This CT exam was performed using one or more of the following dose reduction techniques: Automated exposure control, adjustment of the mA and/or kV according to patient size, and/or use of iterative reconstruction technique. FINDINGS: PULMONARY ARTERIES: Unremarkable. No definitive pulmonary embolism. AORTA: No acute findings. No thoracic aortic aneurysm. LUNGS: Limited bilateral basilar dependent atelectasis. No nodule, mass or pulmonary consolidation. Central airways appear clear. PLEURAL SPACES: Unremarkable. No effusion or pneuomothorax. HEART: Unremarkable. No cardiomegaly. No significant pericardial effusion. LYMPH NODES: No lymphadenopathy. BONES, CHEST WALL: Unremarkable. No fracture or destructive lesion OTHER FINDINGS: Unremarkable. IMPRESSION: Unremarkable CT pulmonary angiogram. No infiltrate, mass, significant lymphadenopathy, pleural or pericardial effusion identified. Concordant preliminary report from [facility], 09/01/2017. Upon discharge, pt pulled out own IV. Scribe Attestation: Documented by Phyllis Guan, acting as a scribe for Carmenza Hoang MD Provider Scribe Attestation: All medical record entries made by the Scribe were at my direction and personally dictated by me. I have reviewed the chart and agree that the record accurately reflects my personal performance of the history, physical exam, medical decision making, and the department course for this patient. I have also personally directed, reviewed, and agree with the discharge instructions and disposition. Disposition - Clinical Impression Clinical Impression: Syncope, Atypical chest pain, Vertigo - Disposition Referrals: [facility] [Outside] [facility] [Outside] Disposition: Routine/Home Disposition Time: 22:22 Condition: IMPROVED Prescriptions: Meclizine [Meclizine*] 25 mg PO Q6 PRN #20 tab PRN Reason: Dizziness Naproxen [Naprosyn] 500 mg PO BID PRN #15 tablet PRN Reason: Pain, Moderate (4-7) Instructions: Vertigo (a Type of Dizziness), Syncope (Fainting), Chest Pain Forms: [facility] (Nam[place]ian)
[2017-09-01] MEDS ORDERED: Sodium Chloride 0.9% 50 ML IV ONE (21:04)
[2017-09-01] MEDS ORDERED: Iodixanol 320 MG/ML 100 ML BOTTLE IV ONE (21:04)
[2017-09-01 22:09] VITALS: O2SAT 100
[2017-09-01 22:41] VITALS: BP 116/81; PULSE 73; TEMP 97.6
--- NOTE | 2017-09-02 09:16 | CT ---
PROCEDURE: CT HEAD WITHOUT CONTRAST. HISTORY: Dizziness, syncope COMPARISON: Noncontrast head CT 02/28/2014. TECHNIQUE: Axial computed tomography images were obtained through the head/brain without intravenous contrast. Radiation dose: Total exam DLP = 731.28 mGy-cm. This CT exam was performed using one or more of the following dose reduction techniques: Automated exposure control, adjustment of the mA and/or kV according to patient size, and/or use of iterative reconstruction technique. FINDINGS: HEMORRHAGE: No intracranial hemorrhage. BRAIN: Stable, normal hsieh-white matter differentiation and density are appreciated throughout the cerebrum and cerebellum with the brainstem appearing unremarkable as well. There is no mass effect. There is no suspicious extra-axial fluid collection and the midline brain anatomy appears diffusely unremarkable. VENTRICLES: Unremarkable. No hydrocephalus. CALVARIUM: Unremarkable. PARANASAL SINUSES: Unremarkable as visualized. No significant inflammatory changes. MASTOID AIR CELLS: Unremarkable as visualized. No inflammatory changes. OTHER FINDINGS: Incidental bilateral external auditory canal soft tissue likely reflecting cerumen is identified. Clinically correlate. IMPRESSION: Stable unremarkable noncontrast head CT as compared prior head CT 02/28/2014. Concordant preliminary report from [facility], 09/01/2017.
--- NOTE | 2017-09-02 09:44 | CT ---
PROCEDURE: CT Chest with contrast (Pulmonary Angiogram) HISTORY: CP COMPARISON: None available. TECHNIQUE: Axial computed tomography images were obtained of the chest in the pulmonary arterial phase of enhancement. Coronal and sagittal reformatted images were created and reviewed. Intravenous contrast dose: Visipaque 320, 80 cc Radiation dose: Total exam DLP = 731.28 mGy-cm. This CT exam was performed using one or more of the following dose reduction techniques: Automated exposure control, adjustment of the mA and/or kV according to patient size, and/or use of iterative reconstruction technique. FINDINGS: PULMONARY ARTERIES: Unremarkable. No definitive pulmonary embolism. AORTA: No acute findings. No thoracic aortic aneurysm. LUNGS: Limited bilateral basilar dependent atelectasis. No nodule, mass or pulmonary consolidation. Central airways appear clear. PLEURAL SPACES: Unremarkable. No effusion or pneuomothorax. HEART: Unremarkable. No cardiomegaly. No significant pericardial effusion. LYMPH NODES: No lymphadenopathy. BONES, CHEST WALL: Unremarkable. No fracture or destructive lesion OTHER FINDINGS: Unremarkable. IMPRESSION: Unremarkable CT pulmonary angiogram. No infiltrate, mass, significant lymphadenopathy, pleural or pericardial effusion identified. Concordant preliminary report from [facility], 09/01/2017.
--- NOTE | 2017-09-02 11:40 | CARD ---
APPROVED REPORT EKG Measurement Heart [id number] ME 94P56 [id number] <Conclusion> Sinus rhythm with short ME Otherwise normal ECG
--- NOTE | 2017-09-02 11:41 | CARD ---
APPROVED REPORT EKG Measurement Heart [id number] FL 92P50 [id number] <Conclusion> Sinus rhythm with sinus arrhythmia with short FL Otherwise normal ECG
== END 2017-09-01 22:45 | disposition home or self-care (01) ==
LOC: H.ER 17:54
DX: R55 Syncope and collapse (principal); R07.89 Other chest pain; F32.9 Major depressive disorder, single episode, unspecified
CPT/HCPCS: 70450; 71275; 80053; 81003; 81025; 82948; 84484; 85025; 85378; 85610; 85730; 93005; 96374; 99285; J2270; J7030; Q9967

== ENCOUNTER 2017-09-08 19:02 | Emergency (ER) | payer OTHER ==
[2017-09-08 19:02] VITALS: BMI 26.4
[2017-09-08 19:13] VITALS: RESP 16; O2SAT 100
--- NOTE | 2017-09-08 20:03 | ED PDOC ---
HPI: Chest Pain Time Seen by Provider: 09/08/17 19:47 Chief Complaint (Nursing): Chest Pain History Per: Patient History/Exam Limitations: no limitations Onset/Duration Of Symptoms: Hrs Current Symptoms Are (Timing): Still Present Additional Complaint(s): Hx of lupus (on no medications), anxiety (on prozac and alprazolam) presenting with chest pressure, states it started this morning while brushing her teeth, states the pain was not as intense earlier but now feels like an "elephant is sitting on [her] chest". Pressure does not radiate, states she feels like she can't take a deep breath in. States she was in the ER a few days ago for syncope. Patient tearful, anxious during interview. Past Medical History Reviewed: Historical Data, Nursing Documentation, Vital Signs Vital Signs: Last Vital Signs Temp 98.5 F 09/08/17 19:09 Pulse 111 H 09/08/17 19:09 Resp 16 09/08/17 19:09 BP 114/75 09/08/17 19:09 Pulse Ox 100 09/08/17 20:05 - Medical History PMH: Depression - Surgical History Surgical History: (x 2) - Family History Family History: States: Unknown Family Hx - Immunization History Hx Tetanus Toxoid Vaccination: No Hx Influenza Vaccination: No Hx Pneumococcal Vaccination: No - Home Medications Home Medications: Ambulatory Orders Medication Instructions Recorded Sertraline [Zoloft] 200 mg PO HS 10/19/14 Albuterol HFA [Ventolin HFA 90 2 puff IH [id number] PRN #1 bottle 03/12/15 mcg/actuation (8 g)] Azithromycin [Zithromax Z-Rush] 250 mg PO DAILY #4 tab 03/12/15 Ibuprofen [Motrin] 600 mg PO Q6 #20 tab 01/02/16 Benzocaine/Menthol [Sore Throat 1 each MM Q6 PRN #30 lozenge 05/19/16 Lozenge] guaiFENesin/Dextromethorphan 5 ml PO Q6 PRN #100 ml 05/19/16 [guaiFENesin-DM] Famotidine [Pepcid] 20 mg PO Q12 #20 tab 09/03/16 Vitamin B Complex [B Complex] 1 each PO DAILY #30 tablet NS 12/27/16 Naproxen [Naprosyn] 500 mg PO BID PRN #15 tablet 04/11/17 Oseltamivir Phosphate [Tamiflu] 75 mg PO BID #9 capsule 04/11/17 Promethazine/Codeine 5 ml PO Q6 PRN #100 ml 04/11/17 [Phenergan/Codeine Oral Syrup] Benzonatate [Tessalon Perles] 100 mg PO BID PRN 5 Days sgl 04/13/17 Ibuprofen [Motrin] 600 mg PO TID 7 Days tab 04/13/17 Promethazine/Codeine 5 ml PO Q6 PRN 3 Days udc 04/13/17 [Phenergan/Codeine Oral Syrup] Meclizine [Meclizine*] 25 mg PO Q6 PRN #20 tab 09/01/17 Naproxen [Naprosyn] 500 mg PO BID PRN #15 tablet 09/01/17 Cyclobenzaprine [Cyclobenzaprine 10 mg PO BID #15 tab 09/08/17 HCl] - Allergies Allergies/Adverse Reactions: Allergies Allergy/AdvReac Type Severity Reaction Status Date / Time metoclopramide HCl Allergy RASH Verified 09/08/17 19:09 [From Reglan] ketorolac [From Toradol] AdvReac HEADACHE Verified 09/08/17 21:05 CARTER Risk Score for UA/NSTEMI - CARTER Risk Score Age > 64: NO 3 or more CAD Risk Factors: NO Known CAD (Stenosis greater than 50%): NO Aspirin use in past 7 days: NO Severe Angina: NO EKG ST changes greater than 0.5mm: NO Positive Cardiac Marker: NO CARTER Score: 0 Risk %: 5% Curb-65 Severity Score - CURB-65 Severity Score Confusion: No Bun >19mg/dl (>7mmol/L): No Respiratory Rate greater than/equal to 30: No Systolic BP <90 or Diastolic BP less than/equal 60mmHg: No Age >64: No Curb-65 Score: 0 Percentage 30-day mortality: 0.6% Wells Criteria for PE - Wells Criteria for Pulmonary Embolism Clinical Signs and Symptoms of DVT: No P.E is #1 Diagnosis, or Equally Likely: No Heart Rate >100: Yes Immobilization at least 3 days;Surgery previous 4 weeks: No Previous, objectively diagnosed PE or DVT: No Hemoptysis: No Malignancy w/treatment within 6 months, or palliative: No Total Score: 1.5 Review of Systems ROS Statement: Except As Marked, All Systems Reviewed And Found Negative Cardiovascular: Positive for: Chest Pain Respiratory: Positive for: Shortness of Breath Physical Exam - Physical Exam Appears: Positive for: Well, Non-toxic, No Acute Distress Skin: Positive for: Normal Color, Warm, DRY Eye Exam: Positive for: EOMI, Normal appearance, PERRL ENT: Positive for: Normal ENT Inspection Neck: Positive for: Normal, Painless ROM Cardiovascular/Chest: Positive for: Regular Rate, Rhythm Respiratory: Positive for: CNT, Normal Breath Sounds Gastrointestinal/Abdominal: Positive for: Normal Exam, Soft Back: Positive for: Normal Inspection Extremity: Positive for: Normal ROM Neurologic/Psych: Positive for: Alert, podiatric surgeon II-XII, Oriented, Mood/Affect ( Anxious, crying). Negative for: Motor/Sensory Deficits - Laboratory Results Result Diagrams: 09/08/17 20:16 09/08/17 20:16 - ECG ECG Rhythm: Positive for: Normal QRS, Normal ST Segment, Nonspecific Changes ( unchanged from 2015) O2 Sat by Pulse Oximetry: 100 Pulse Ox Interpretation: Normal Medical Decision Making Medical Decision MakinPM A/P: Hx of lupus, depression/anxiety presenting with chest pressure and shortness of breath -crying, but otherwise well, stable appearing, tachycardia improved spontaneously from 110 to 89, BP and Sat normal -ddX: anxiety, PE, MSK, very unlikely cardiac related -will get further testing, CXR not needed at this time given recent CTA a few days ago 1020PM -HR 89, patient is feeling better, requesting script for muscle relaxant -will give referral to cards -return precautions given Disposition - Clinical Impression Clinical Impression: Atypical chest pain - Disposition Referrals: Jeremie Johnson MD [Staff Provider] - Disposition: Routine/Home Disposition Time: 22:21 Condition: IMPROVED Prescriptions: Cyclobenzaprine [Cyclobenzaprine HCl] 10 mg PO BID #15 tab Instructions: Chest Pain That Is Not Caused by the Heart (DC) Forms: [employer] (Polish)
[2017-09-08 20:22] LABS: BASO # 0.1 K/uL (0.0-0.2); EOS # 0.4 K/uL (0.0-0.7); HEMOGLOBIN 13.9 g/dL (12.0-16.0); LYMPH # 2.1 K/uL (1.0-4.3); LYMPH % 20.9 % (20.0-40.0); MEAN CELL VOLUME 82.3 fl (81.0-99.0); MEAN CORPUSCULAR HEMOGLOBIN 27.9 pg (27.0-31.0); MEAN CORPUSCULAR HGB CONC 33.9 g/dL (33.0-37.0); MEAN PLATELET VOLUME 8.4 fl (7.2-11.7); NEUT # 6.4 K/uL (1.8-7.0); NEUT % 64.1 % (50.0-75.0); NRBC % 0.1 % (0.0-0.0); RED CELL DISTRIBUTION WIDTH 12.4 % (11.5-14.5)
[2017-09-08 20:42] LABS: PARTIAL THROMBOPLASTIN TIME 28.6 Seconds (25.6-37.1)
[2017-09-08 21:09] LABS: BLOOD UREA NITROGEN 26 mg/dl (7-17); CALCIUM 9.1 mg/dL (8.4-10.2); GFR AFRICAN-AMERICAN > 60; GFR NON-AFRICAN AMERICAN > 60
[2017-09-08 22:39] VITALS: BP 100/65; PULSE 74; TEMP 98
--- NOTE | 2017-09-09 09:25 | CARD ---
APPROVED REPORT EKG Measurement Heart [id number] <Conclusion> Sinus tachycardia Nonspecific ST and T wave abnormality Abnormal ECG
== END 2017-09-08 22:30 | disposition home or self-care (01) ==
LOC: H.ER 19:02
DX: R07.89 Other chest pain (principal); F32.9 Major depressive disorder, single episode, unspecified; F41.9 Anxiety disorder, unspecified; M32.9 Systemic lupus erythematosus, unspecified

== ENCOUNTER 2017-10-08 06:28 | Emergency (ER) | payer OTHER ==
[2017-10-08 06:28] VITALS: BMI 26.4
[2017-10-08 06:41] VITALS: TEMP 98.1; O2SAT 98
--- NOTE | 2017-10-08 07:30 | ED PDOC ---
HPI: Chest Pain Time Seen by Provider: 10/08/17 07:05 Chief Complaint (Nursing): Shortness Of Breath Chief Complaint (Provider): chest pain anxiety History Per: Patient History/Exam Limitations: no limitations Onset/Duration Of Symptoms: Hrs (12), Intermittent Episodes Current Symptoms Are (Timing): Better Severity: Mild Quality: Tightness Associated Symptoms: Dyspnea. denies: Nausea Modifying Factors: None Exacerbating Factors: None Alleviating Factors: None Additional Complaint(s): 27yo female history of anxiety, presents c/o chest discomfort and difficulty sleeping after the of her mother last night. She states shes been seen several times over the last few months for similar chest discomfort. Had repeat EKGs, bloodwork, CTA chest, states has improved w anxiolysis medications in past. Denies neck pain, headache, fever, abd pain, vomiting or diarrhea. States feels anxious over mothers but denies suicidal thoughts, states she has 2 kids and would never consider hurting herself, has a therapist and states compliance w SSRI and aprazolam at night. Past Medical History Reviewed: Historical Data, Nursing Documentation, Vital Signs Vital Signs: Last Vital Signs Temp 98.1 F 10/08/17 08:30 Pulse 72 10/08/17 09:13 Resp 16 10/08/17 08:30 BP 110/71 10/08/17 08:30 Pulse Ox 98 10/08/17 09:13 - Medical History PMH: Anxiety, Depression - Surgical History Surgical History: (x 2) - Family History Family History: States: Unknown Family Hx - Living Arrangements Living Arrangements: With Family - Immunization History Hx Tetanus Toxoid Vaccination: No Hx Influenza Vaccination: No Hx Pneumococcal Vaccination: No - Home Medications Home Medications: Ambulatory Orders Medication Instructions Recorded Sertraline [Zoloft] 200 mg PO HS 10/19/14 Albuterol HFA [Ventolin HFA 90 2 puff IH [id number] PRN #1 bottle 03/12/15 mcg/actuation (8 g)] Azithromycin [Zithromax Z-Rush] 250 mg PO DAILY #4 tab 03/12/15 Ibuprofen [Motrin] 600 mg PO Q6 #20 tab 01/02/16 Benzocaine/Menthol [Sore Throat 1 each MM Q6 PRN #30 lozenge 05/19/16 Lozenge] guaiFENesin/Dextromethorphan 5 ml PO Q6 PRN #100 ml 05/19/16 [guaiFENesin-DM] Famotidine [Pepcid] 20 mg PO Q12 #20 tab 09/03/16 Vitamin B Complex [B Complex] 1 each PO DAILY #30 tablet NS 12/27/16 Naproxen [Naprosyn] 500 mg PO BID PRN #15 tablet 04/11/17 Oseltamivir Phosphate [Tamiflu] 75 mg PO BID #9 capsule 04/11/17 Promethazine/Codeine 5 ml PO Q6 PRN #100 ml 04/11/17 [Phenergan/Codeine Oral Syrup] Benzonatate [Tessalon Perles] 100 mg PO BID PRN 5 Days sgl 04/13/17 Ibuprofen [Motrin] 600 mg PO TID 7 Days tab 04/13/17 Promethazine/Codeine 5 ml PO Q6 PRN 3 Days udc 04/13/17 [Phenergan/Codeine Oral Syrup] Meclizine [Meclizine*] 25 mg PO Q6 PRN #20 tab 09/01/17 Naproxen [Naprosyn] 500 mg PO BID PRN #15 tablet 09/01/17 Cyclobenzaprine [Cyclobenzaprine 10 mg PO BID #15 tab 09/08/17 HCl] clonazePAM [clonAZEPAM] 0.5 mg PO BID PRN #4 tab 10/08/17 - Allergies Allergies/Adverse Reactions: Allergies Allergy/AdvReac Type Severity Reaction Status Date / Time metoclopramide HCl Allergy RASH Verified 09/08/17 19:09 [From Reglan] ketorolac [From Toradol] AdvReac HEADACHE Verified 09/08/17 21:05 Review of Systems Constitutional: Negative for: Fever Eyes: Negative for: Vision Change ENT: Negative for: Throat Pain Cardiovascular: Positive for: Chest Pain, Palpitations Gastrointestinal: Negative for: Abdominal Pain Genitourinary Female: Negative for: Dysuria Musculoskeletal: Negative for: Neck Pain, Back Pain Skin: Negative for: Rash, Lesions Neurological: Negative for: Weakness Psych: Positive for: Anxiety, Depression. Negative for: Suicidal ideation, Withdrawal - Laboratory Results Result Diagrams: 10/08/17 07:20 10/08/17 07:20 - ECG ECG: Positive for: Interpreted By Me ECG Rhythm: Positive for: Sinus Rhythm, Nonspecific Changes Interpretation Of Abn EKG: no change from august 2017 EKG Interpretation Of ECG: short SD but no delta wave Rate: 72 O2 Sat by Pulse Oximetry: 98 Pulse Ox Interpretation: Normal Medical Decision Making Medical Decision Making: labs reviewed and unremarkable Prior charts reviewed, CTA chest last month, DDimer neg x2 improved today w xanax PO Requested klonopin for anxiety given mothers for she states xanax too sedating for daytime. #4 pills Rx. [employer] database reveals 2x Rx for xanax over last month. She requested discharge to attend to mothers planning. Disposition - Clinical Impression Clinical Impression: Anxiety, Bereavement reaction - Patient ED Disposition Is Patient to be Admitted: No Counseled Patient/Family Regarding: Studies Performed, Diagnosis, Need For Followup - Disposition Disposition: Routine/Home Disposition Time: 08:40 Condition: STABLE Additional Instructions: Return to ER for any worse or new symptoms. Prescriptions: clonazePAM [clonAZEPAM] 0.5 mg PO BID PRN #4 tab PRN Reason: Anxiety Instructions: Anxiety, Adult (DC), Chest Pain (DC), Dealing With , Adult Forms: [facility] (Chinese)
[2017-10-08 07:42] LABS: BASO % 0.5 % (0.0-2.0); EOS # 0.2 K/uL (0.0-0.7); EOS % 3.7 % (0.0-4.0); HEMOGLOBIN 14.4 g/dL (12.0-16.0); LYMPH # 1.4 K/uL (1.0-4.3); MEAN CELL VOLUME 81.8 fl (81.0-99.0); MEAN CORPUSCULAR HEMOGLOBIN 28.3 pg (27.0-31.0); MEAN CORPUSCULAR HGB CONC 34.6 g/dL (33.0-37.0); MEAN PLATELET VOLUME 8.3 fl (7.2-11.7); MONO # 0.6 K/uL (0.0-0.8); MONO % 9.8 % (0.0-10.0); NEUT # 4.2 K/uL (1.8-7.0); RBC 5.07 Mil/uL (3.80-5.20); RED CELL DISTRIBUTION WIDTH 12.9 % (11.5-14.5); WHITE BLOOD COUNT 6.4 K/uL (4.8-10.8)
[2017-10-08 08:01] LABS: ALB/GLOB RATIO 1.3 (1.0-2.1); ALBUMIN 4.2 g/dL (3.5-5.0); ALT/SGPT 13 U/L (9-52); AST/SGOT 20 U/L (14-36); BLOOD UREA NITROGEN 18 mg/dl (7-17); CALCIUM 9.5 mg/dL (8.4-10.2); GFR AFRICAN-AMERICAN > 60; GFR NON-AFRICAN AMERICAN > 60
[2017-10-08 08:03] LABS: B-TYPE NATRIURETIC PEPTIDE 74.3 pg/ml (0-450)
[2017-10-08 08:55] VITALS: BP 110/71; RESP 16
[2017-10-08 09:13] VITALS: PULSE 72
--- NOTE | 2017-10-08 15:03 | CARD ---
APPROVED REPORT Date of service: 10/08/2017 EKG Measurement Heart [id number] [id number] <Conclusion> Sinus rhythm with short ND Otherwise normal ECG
== END 2017-10-08 08:54 | disposition home or self-care (01) ==
LOC: H.ER 06:28
DX: Z63.4 Disappearance and death of family member (principal); F32.9 Major depressive disorder, single episode, unspecified; F41.9 Anxiety disorder, unspecified

== ENCOUNTER 2017-10-22 10:42 | Emergency (ER) | payer OTHER ==
[2017-10-22 10:43] VITALS: BMI 26.4
[2017-10-22] MEDS ORDERED: Sodium Chloride 0.9% 1,000 ML IV STA ×2 (11:43→12:33)
[2017-10-22 12:15] LABS: BASO % 0.4 % (0.0-2.0); EOS # 0.1 K/uL (0.0-0.7); EOS % 0.4 % (0.0-4.0); HEMOGLOBIN 15.7 g/dL (12.0-16.0); LYMPH % 8.7 % (20.0-40.0); MEAN CELL VOLUME 80.8 fl (81.0-99.0); MEAN CORPUSCULAR HGB CONC 34.6 g/dL (33.0-37.0); MEAN PLATELET VOLUME 8.3 fl (7.2-11.7); MONO # 0.7 K/uL (0.0-0.8); MONO % 6.3 % (0.0-10.0); NEUT # 9.8 K/uL (1.8-7.0); NEUT % 84.2 % (50.0-75.0); PLATELET COUNT 402 K/uL (130-400); RBC 5.61 Mil/uL (3.80-5.20); RED CELL DISTRIBUTION WIDTH 13.2 % (11.5-14.5); WHITE BLOOD COUNT 11.7 K/uL (4.8-10.8)
[2017-10-22 12:18] LABS: PROTHROMBIN TIME 11.6 Seconds (9.8-13.1)
[2017-10-22 12:21] LABS: PARTIAL THROMBOPLASTIN TIME 25.9 Seconds (25.6-37.1)
--- NOTE | 2017-10-22 12:35 | CARD ---
APPROVED REPORT Date of service: 10/22/2017 <Conclusion> Sinus rhythm with short HI Nonspecific ST and T wave abnormality Abnormal ECG
[2017-10-22 12:37] LABS: ALB/GLOB RATIO 1.3 (1.0-2.1); ALBUMIN 5.1 g/dL (3.5-5.0); ALT/SGPT 28 U/L (9-52); AST/SGOT 33 U/L (14-36); BLOOD UREA NITROGEN 17 mg/dl (7-17); GFR AFRICAN-AMERICAN > 60; GFR NON-AFRICAN AMERICAN > 60
--- NOTE | 2017-10-22 13:00 | ED PDOC ---
Syncope/Near Syncope/Dizziness Time Seen by Provider: 10/22/17 11:01 Chief Complaint (Nursing): GI Problem Chief Complaint (Provider): Syncope History Per: Patient Additional Complaint(s): Pt presents with sister, states she was on phone with sister when she started feeling nauseous with chest tightness, passed out, woke up to EMS knocking on door. Pt has multiple syncopal episodes in the past, followed-up with Psychiatrist but not medically. Denies fever, WALLER, vomiting, abdominal pain, diarrhea, SOB, palpitations. Pt states she was told she needed dialysis "a long time ago" but never followed-up. Past Medical History Reviewed: Nursing Documentation, Vital Signs Vital Signs: Last Vital Signs Temp 98.3 F 10/22/17 10:46 Pulse 109 H 10/22/17 10:46 Resp 21 10/22/17 10:46 BP 120/74 10/22/17 10:46 Pulse Ox 100 10/22/17 10:46 - Medical History PMH: Anxiety, Depression Other PMH: Lupus - Surgical History Surgical History: (x 2) - Family History Family History: States: Unknown Family Hx - Social History Current smoker - smoking cessation education provided: No Alcohol: None Drugs: Denies - Immunization History Hx Tetanus Toxoid Vaccination: No Hx Influenza Vaccination: No Hx Pneumococcal Vaccination: No - Home Medications Home Medications: Ambulatory Orders Medication Instructions Recorded Sertraline [Zoloft] 200 mg PO HS 10/19/14 Albuterol HFA [Ventolin HFA 90 2 puff IH [id number] PRN #1 bottle 03/12/15 mcg/actuation (8 g)] Azithromycin [Zithromax Z-Rush] 250 mg PO DAILY #4 tab 03/12/15 Ibuprofen [Motrin] 600 mg PO Q6 #20 tab 01/02/16 Benzocaine/Menthol [Sore Throat 1 each MM Q6 PRN #30 lozenge 05/19/16 Lozenge] guaiFENesin/Dextromethorphan 5 ml PO Q6 PRN #100 ml 05/19/16 [guaiFENesin-DM] Famotidine [Pepcid] 20 mg PO Q12 #20 tab 09/03/16 Vitamin B Complex [B Complex] 1 each PO DAILY #30 tablet NS 12/27/16 Naproxen [Naprosyn] 500 mg PO BID PRN #15 tablet 04/11/17 Oseltamivir Phosphate [Tamiflu] 75 mg PO BID #9 capsule 04/11/17 Promethazine/Codeine 5 ml PO Q6 PRN #100 ml 04/11/17 [Phenergan/Codeine Oral Syrup] Benzonatate [Tessalon Perles] 100 mg PO BID PRN 5 Days sgl 04/13/17 Ibuprofen [Motrin] 600 mg PO TID 7 Days tab 04/13/17 Promethazine/Codeine 5 ml PO Q6 PRN 3 Days udc 04/13/17 [Phenergan/Codeine Oral Syrup] Meclizine [Meclizine*] 25 mg PO Q6 PRN #20 tab 09/01/17 Naproxen [Naprosyn] 500 mg PO BID PRN #15 tablet 09/01/17 Cyclobenzaprine [Cyclobenzaprine 10 mg PO BID #15 tab 09/08/17 HCl] clonazePAM [clonAZEPAM] 0.5 mg PO BID PRN #4 tab 10/08/17 - Allergies Allergies/Adverse Reactions: Allergies Allergy/AdvReac Type Severity Reaction Status Date / Time acetaminophen [From Percocet] Allergy RASH Verified 10/22/17 10:55 metoclopramide HCl Allergy RASH Verified 10/22/17 10:54 [From Reglan] oxycodone [From Percocet] Allergy RASH Verified 10/22/17 10:55 ketorolac [From Toradol] AdvReac HEADACHE Verified 10/22/17 10:54 Review of Systems Constitutional: Negative for: Fever, Chills Eyes: Negative for: Vision Change Cardiovascular: Positive for: Chest Pain. Negative for: Palpitations Respiratory: Negative for: Cough, Shortness of Breath Gastrointestinal: Positive for: Nausea. Negative for: Vomiting, Abdominal Pain , Diarrhea Genitourinary Female: Negative for: Dysuria, Hematuria, Vaginal Discharge, Vaginal Bleeding Musculoskeletal: Negative for: Neck Pain, Back Pain Skin: Negative for: Rash, Lesions Neurological: Negative for: Weakness, Numbness, Incoordination, Change in Speech , Confusion, Seizures, Altered Mental Status, Headache, Dizziness Psych: Negative for: Suicidal ideation Physical Exam - Reviewed Nursing Documentation Reviewed: Yes Vital Signs Reviewed: Yes - Physical Exam Appears: Positive for: Well, No Acute Distress Head Exam: Positive for: ATRAUMATIC, NORMAL INSPECTION Skin: Positive for: Normal Color, Warm, Dry Eye Exam: Positive for: Normal appearance, EOMI, PERRL Neck: Positive for: Normal, Painless ROM, Supple Cardiovascular/Chest: Positive for: Regular Rate, Rhythm Respiratory: Positive for: Normal Breath Sounds Gastrointestinal/Abdominal: Positive for: Normal Exam, Bowel Sounds, Soft. Negative for: Tenderness Extremity: Positive for: Normal ROM. Negative for: Calf Tenderness Neurologic/Psych: Positive for: Alert, director of social services II-XII, Oriented. Negative for: Motor/Sensory Deficits, Aphasia, Facial Droop - Laboratory Results Result Diagrams: 10/22/17 12:00 10/22/17 12:00 - ECG O2 Sat by Pulse Oximetry: 100 Medical Decision Making Medical Decision Makin yo female with syncope. - labs - EKG - CXR - CT chest - IVF - Zofran Pt placed under arrest after arrival to ED, apparently had bag of Endocet tablets that were not hers. Disposition - Clinical Impression Clinical Impression: Weakness - Disposition Referrals: [facility] [Outside] (FOLLOW UP AT CLINIC OR YOUR PRIMARY DOCTOR IN 2-3 DAYS FOR REEVALUATION) Disposition: Transfer of Care Disposition Time: 15:00 Condition: STABLE Additional Instructions: MEDICALLY AND PSYCHIATRICALLY STABLE FOR INCARCERATION Instructions: Syncope (Fainting) Forms: [employer] (Macedonian) Patient Signed Over To: Emily Alford CARTER Risk Score for UA/NSTEMI - CARTER Risk Score Age > 64: NO 3 or more CAD Risk Factors: NO Known CAD (Stenosis greater than 50%): NO Aspirin use in past 7 days: NO Severe Angina: NO EKG ST changes greater than 0.5mm: NO Positive Cardiac Marker: NO CARTER Score: 0 Risk %: 5% Wells Criteria for PE - Wells Criteria for Pulmonary Embolism Clinical Signs and Symptoms of DVT: No P.E is #1 Diagnosis, or Equally Likely: No Heart Rate >100: No Immobilization at least 3 days;Surgery previous 4 weeks: No Previous, objectively diagnosed PE or DVT: No Hemoptysis: No Malignancy w/treatment within 6 months, or palliative: No Total Score: 0
[2017-10-22] MEDS ORDERED: Sodium Chloride 0.9% 50 ML IV ONE (13:45)
[2017-10-22] MEDS ORDERED: Iodixanol 320 MG/ML 100 ML BOTTLE IV ONE (13:45)
[2017-10-22 14:28] LABS: SQUAMOUS EPITHIAL 20 /hpf (0-5); URINE BACTERIA RARE (<OCC); URINE BILIRUBIN NEGATIVE (NEGATIVE); URINE BLOOD NEGATIVE (NEGATIVE); URINE CLARITY CLOUDY (Clear); URINE COLOR YELLOW (YELLOW); URINE GLUCOSE (UA) NEG (Normal); URINE HYALINE CAST 0-2 /hpf (0-2); URINE LEUKOCYTE ESTERASE NEG Leu/uL (Negative); URINE PROTEIN 100 mg/dL (NEGATIVE); URINE UROBILINOGEN 0.2-1.0 mg/dL (0.2-1.0)
[2017-10-22 14:31] LABS: BANDS 2 % (0-2); EOSINOPHIL 1 % (0-7); LYMPHOCYTE 7 % (20-50); MONOCYTE 6 % (0-10); NEUTROPHIL 84 % (42-75); TOTAL CELLS COUNTED 100
[2017-10-22 14:32] LABS: PLATELET ESTIMATE NORMAL (NORMAL)
[2017-10-22 14:42] LABS: BARBITURATES, UR NEGATIVE (NEGATIVE); BENZODIAZEPINES, UR POSITIVE (NEGATIVE); OPIATES, UR NEGATIVE (NEGATIVE); PHENCYCLIDINE, UR NEGATIVE (NEGATIVE)
--- NOTE | 2017-10-22 15:08 | ED PDOC ---
- Laboratory Results Result Diagrams: 10/22/17 12:00 10/22/17 12:00 - ECG O2 Sat by Pulse Oximetry: 100 (RA) Pulse Ox Interpretation: Normal Medical Decision Making Medical Decision Making: Time: 1500 -- Received endorsement from Dr. Hoang. Patient is currently under police custody and brought for evaluation for lightheadedness and syncope, pending results of CT Chest and crisis clearance for incarceration. Accession No. : [id number] Patient Name / ID : ORI WORTHY / [id number] Exam Date : 10/22/2017 13:51:50 ( Approved ) Study Comment : Sex / Age : F / 27Y Creator : Luis Garsia MD Dictator : Luis Garsia MD Prospecting Driller Helper : Security Sales Manager : Luis Garsia MD Approver2 : Report Date : 10/22/2017 15:35:34 My Comment : Date of service: 10/22/2017 PROCEDURE: CT Chest with contrast (Pulmonary Angiogram) HISTORY: COMPARISON: CT angiogram Chest 09/01/2017. TECHNIQUE: Axial computed tomography images were obtained of the chest in the pulmonary arterial phase of enhancement. Coronal and sagittal reformatted images were created and reviewed. Intravenous contrast dose: Visipaque 320, 90 cc Radiation dose: Total exam DLP = 340.80 mGy-cm. This CT exam was performed using one or more of the following dose reduction techniques: Automated exposure control, adjustment of the mA and/or kV according to patient size, and/or use of iterative reconstruction technique. FINDINGS: PULMONARY ARTERIES: Unremarkable. No pulmonary embolism. AORTA: No acute findings. No thoracic aortic aneurysm. LUNGS: Unremarkable. No nodule, mass or pulmonary consolidation. PLEURAL SPACES: Unremarkable. No effusion or pneumothorax. HEART: Unremarkable. No cardiomegaly. No significant pericardial effusion. LYMPH NODES: No lymphadenopathy. BONES, CHEST WALL: Unremarkable. No fracture or destructive lesion OTHER FINDINGS: Unremarkable. IMPRESSION: Unremarkable CT pulmonary angiogram. No interval pulmonary embolus. No significant interval change compared prior Chest CT 09/01/2017. Evaluated by CHRISTEN Flor who d/w Dr Altman. Psychiatrically stable for incarceration Medically stable for incarceration as well Scribe Attestation: Documented by Ruben Goncalves acting as a scribe for Dr. Emily Alford. Provider Scribe Attestation: All medical record entries made by the Scribe were at my direction and personally dictated by me. I have reviewed the chart and agree that the record accurately reflects my personal performance of the history, physical exam, medical decision making, and the department course for this patient. I have also personally directed, reviewed, and agree with the discharge instructions and disposition. Disposition - Clinical Impression Clinical Impression: Weakness - POA Present On Arrival: None - Disposition Referrals: [facility] [Outside] (FOLLOW UP AT CLINIC OR YOUR PRIMARY DOCTOR IN 2-3 DAYS FOR REEVALUATION) Disposition: Discharged/Transfer to Law Enforcement Disposition Time: 15:44 Condition: STABLE Additional Instructions: MEDICALLY AND PSYCHIATRICALLY STABLE FOR INCARCERATION Instructions: Syncope (Fainting) Forms: [employer] (Pakistani)
[2017-10-22 15:56] VITALS: BP 127/78; PULSE 78; RESP 19; TEMP 97
[2017-10-25 09:55] VITALS: O2SAT 100
== END 2017-10-22 15:55 | disposition home or self-care (01) ==
LOC: H.ER 10:42
DX: R55 Syncope and collapse (principal); M62.81 Muscle weakness (generalized); R07.89 Other chest pain; M32.9 Systemic lupus erythematosus, unspecified; Z88.5 Allergy status to narcotic agent
CPT/HCPCS: 71275; 80053; 80324; 80345; 80346; 80349; 80353; 80358; 80361; 81003; 81025; 82948; 83992; 84484; 85025; 85378; 85610; 85730; 93005; 99283; J7030; Q9967

== ENCOUNTER 2017-11-16 10:31 | Emergency (ER) | payer OTHER ==
[2017-11-16 10:48] VITALS: RESP 18; TEMP 98; BMI 28.3
[2017-11-16 11:45] LABS: BASO % 0.3 % (0.0-2.0); EOS # 0.2 K/uL (0.0-0.7); EOS % 2.9 % (0.0-4.0); HEMOGLOBIN 14.5 g/dL (12.0-16.0); LYMPH # 1.5 K/uL (1.0-4.3); LYMPH % 20.2 % (20.0-40.0); MEAN CORPUSCULAR HEMOGLOBIN 28.4 pg (27.0-31.0); MEAN CORPUSCULAR HGB CONC 34.2 g/dL (33.0-37.0); MEAN PLATELET VOLUME 8.3 fl (7.2-11.7); MONO # 0.7 K/uL (0.0-0.8); MONO % 9.6 % (0.0-10.0); NEUT # 4.9 K/uL (1.8-7.0); RBC 5.12 Mil/uL (3.80-5.20); WHITE BLOOD COUNT 7.3 K/uL (4.8-10.8)
[2017-11-16 12:05] LABS: BLOOD UREA NITROGEN 13 mg/dl (7-17); CALCIUM 9.8 mg/dL (8.4-10.2); GFR NON-AFRICAN AMERICAN > 60
[2017-11-16 13:05] LABS: SQUAMOUS EPITHIAL 10 /hpf (0-5); URINE BILIRUBIN NEGATIVE (NEGATIVE); URINE BLOOD LARGE (NEGATIVE); URINE CLARITY CLOUDY (Clear); URINE COLOR YELLOW (YELLOW); URINE GLUCOSE (UA) NEG (Normal); URINE LEUKOCYTE ESTERASE NEG Leu/uL (Negative); URINE PROTEIN NEGATIVE (NEGATIVE); URINE UROBILINOGEN 0.2-1.0 mg/dL (0.2-1.0)
--- NOTE | 2017-11-16 13:14 | ED PDOC ---
HPI: Abdomen Time Seen by Provider: 11/16/17 11:06 Chief Complaint (Nursing): Abdominal Pain Chief Complaint (Provider): abdominal cramps History Per: Patient History/Exam Limitations: no limitations Onset/Duration Of Symptoms: Hrs (today) Current Symptoms Are (Timing): Still Present Pain Scale Rating Of: 7 Location Of Pain/Discomfort: Other (lower) Quality Of Discomfort: Cramping Associated Symptoms: denies: Nausea, Vomiting, Diarrhea, Chest Pain Additional Complaint(s): Jerri Dickinson is a 27 year old female, with a past medical history of depression, anxiety and bipolar disorder, who presents to the emergency department for evaluation of . Patient states x2 weeks ago she took 3 at home test which came all positive. Today she woke up with mild vaginal bleeding but has not had to use any pads or tampons. She also reports mild cramping sensation to lower abdomen, which she ranks 7/10, and associated with lower back pain. Patient reports she has been taking vitamins but no care. She reports this is her 5th , she's had x2 miscarriages and x2 full term by c-sections. 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 She denies any shortness of breath, cough, nausea, vomit, diarrhea, vaginal discharge, headache, dizziness or chest pain. No further medical complaints. LMP September 23 PMD: Tremaine Dobbs Last Menstral Period: September 23 : 5 Para: 2 Miscarriage: 2 Past Medical History Reviewed: Historical Data, Nursing Documentation, Vital Signs Vital Signs: Last Vital Signs Temp 98 F 11/16/17 10:47 Pulse 80 11/16/17 13:41 Resp 18 11/16/17 13:41 BP 105/71 11/16/17 13:41 Pulse Ox 98 11/16/17 14:16 - Medical History PMH: Anxiety, Bipolar Disorder, Depression Denies: Diabetes, Hepatitis, HIV, HTN, Seizures, Sexually Transmitted Disease - Surgical History Surgical History: (x 2) - Family History Family History: States: Unknown Family Hx - Social History Current smoker - smoking cessation education provided: No Alcohol: None Drugs: Denies - Immunization History Hx Tetanus Toxoid Vaccination: No Hx Influenza Vaccination: No Hx Pneumococcal Vaccination: No - Home Medications Home Medications: Ambulatory Orders Medication Instructions Recorded Sertraline [Zoloft] 200 mg PO HS 10/19/14 Albuterol HFA [Ventolin HFA 90 2 puff IH [id number] PRN #1 bottle 03/12/15 mcg/actuation (8 g)] Azithromycin [Zithromax Z-Rush] 250 mg PO DAILY #4 tab 03/12/15 Ibuprofen [Motrin] 600 mg PO Q6 #20 tab 01/02/16 Benzocaine/Menthol [Sore Throat 1 each MM Q6 PRN #30 lozenge 05/19/16 Lozenge] guaiFENesin/Dextromethorphan 5 ml PO Q6 PRN #100 ml 05/19/16 [guaiFENesin-DM] Famotidine [Pepcid] 20 mg PO Q12 #20 tab 09/03/16 Vitamin B Complex [B Complex] 1 each PO DAILY #30 tablet NS 12/27/16 Naproxen [Naprosyn] 500 mg PO BID PRN #15 tablet 04/11/17 Oseltamivir Phosphate [Tamiflu] 75 mg PO BID #9 capsule 04/11/17 Promethazine/Codeine 5 ml PO Q6 PRN #100 ml 04/11/17 [Phenergan/Codeine Oral Syrup] Benzonatate [Tessalon Perles] 100 mg PO BID PRN 5 Days sgl 04/13/17 Ibuprofen [Motrin] 600 mg PO TID 7 Days tab 04/13/17 Promethazine/Codeine 5 ml PO Q6 PRN 3 Days udc 04/13/17 [Phenergan/Codeine Oral Syrup] Meclizine [Meclizine*] 25 mg PO Q6 PRN #20 tab 09/01/17 Naproxen [Naprosyn] 500 mg PO BID PRN #15 tablet 09/01/17 Cyclobenzaprine [Cyclobenzaprine 10 mg PO BID #15 tab 09/08/17 HCl] clonazePAM [clonAZEPAM] 0.5 mg PO BID PRN #4 tab 10/08/17 - Allergies Allergies/Adverse Reactions: Allergies Allergy/AdvReac Type Severity Reaction Status Date / Time acetaminophen [From Percocet] Allergy RASH Verified 10/22/17 10:55 metoclopramide HCl Allergy RASH Verified 10/22/17 10:54 [From Reglan] oxycodone [From Percocet] Allergy RASH Verified 10/22/17 10:55 ketorolac [From Toradol] AdvReac HEADACHE Verified 10/22/17 10:54 Review of Systems ROS Statement: Except As Marked, All Systems Reviewed And Found Negative Cardiovascular: Negative for: Chest Pain Respiratory: Negative for: Cough, Shortness of Breath Gastrointestinal: Positive for: Abdominal Pain (mild lower cramps). Negative for: Nausea, Vomiting, Diarrhea Genitourinary Female: Positive for: Vaginal Bleeding (mild). Negative for: Vaginal Discharge Neurological: Negative for: Headache, Dizziness Physical Exam - Reviewed Nursing Documentation Reviewed: Yes Vital Signs Reviewed: Yes - Physical Exam Comments: GENERAL APPEARANCE: Patient is awake, alert, oriented x 3, in no acute distress. Comfortable SKIN: Warm, dry; (-) cyanosis. EYES: (-) conjunctival pallor, (-) scleral icterus. ENMT: Mucous membranes moist. NECK: (-) tenderness, (-) stiffness, (-) lymphadenopathy. CHEST AND RESPIRATORY: (-) rales, (-) rhonchi, (-) wheezes; breath sounds equal bilaterally. HEART AND CARDIOVASCULAR: (-) irregularity; (-) murmur, (-) gallop. ABDOMEN AND GI: (+) Soft (-) distention. Bowel sounds active; [+] mild tenderness in [suprapubic]. (-) guarding, (-) rebound, (-) palpable masses, (-) Distention (-) CVA tenderness. EXTREMITIES: (-) deformity, (-) edema, (+) distal pulses. NEURO AND PSYCH: Mental status as above; (-) focal findings. - Laboratory Results Result Diagrams: 11/16/17 11:41 11/16/17 11:41 Urine POC: Negative Urine dip results: Positive for: Blood (large), Bilirubin (small), Protein (>300 ). Negative for: Leukocyte Esterase, Nitrate, Ketones, Glucose - ECG O2 Sat by Pulse Oximetry: 98 (RA) Pulse Ox Interpretation: Normal Medical Decision Making Medical Decision Making: Time: 11:06 Initial Impression: abdominal pain and vaginal bleeding in 1st trimester Initial Plan: --BMP --Beta-HCG, Quantitative --Drug screen, urine --Urine --Urine dipstick --CBC w/ differential --Urine culture --Urinalysis --OB Transvaginal [US] --Reevaluation -Upon review of prior charts patient with A- blood type. 1305 Udip reviewed. (-) Beta Quant < 2.39. CBC and BMP grossly unremarkable. H&H stable. 1320 Utox: (+) benzo U/A (+) hematuria (-) leukocyte (-) nitrate. U/C pending. On re-evaluation, patient reports improvement of symptoms. On exam, patient remains AAOx3, in no acute distress. Lungs clear to auscultation, cardiac RRR, abdomen soft, non-tender, repeat neuro exam shows no focal findings. VSS, stable for discharge. Lab/Diagnostic results d/w the patient in great detail. Diagnosis of missed implantation vs early miscarriage d/w the patient. Based on history, exam and diagnostic results, plan will be for outpatient follow up. Patient instructed to follow-up with pmd / referral provided / the clinic in 1- 2 days without fail. Advised to take medication as prescribed. Return to the emergency room at any time for any new or worsening symptoms. Patient states she fully agrees with and understands discharge instructions. States that she agrees with the plan and disposition. Verbalized and repeated discharge instructions and plan. I have given the patient opportunity to ask any additional questions. Disposition - Clinical Impression Clinical Impression: Abdominal pain in female, Negative test, Menstrual period late - Patient ED Disposition Is Patient to be Admitted: No Counseled Patient/Family Regarding: Studies Performed, Diagnosis, Need For Followup - Disposition Referrals: [facility] [Outside] Tremaine Dobbs MD [Family Provider] - Disposition: Routine/Home Disposition Time: 13:23 Condition: STABLE Additional Instructions: The emergency medical care you received today was directed towards the acute presenting symptoms. If you were prescribed any medication, please fill it and give as directed. It may take several days for your symptoms to resolve. Return to the Emergency Department at any time if symptoms worsen, do not improve, or if any other problems arise. Please contact your doctor in 2 days for re-evaluation and follow up / or call one of the physicians/clinics you have been referred to that are listed on the Patient Visit Information form that is included in your discharge packet. Bring any paperwork you were given at discharge with you along with any medications to your follow up visit. Our treatment cannot replace ongoing medical care by a primary care provider (PCP) outside of the emergency department. Instructions: Tests, Acute Abdomen (Belly Pain), Adult (DC) Forms: [employer] (Belgian) Print Language: [place]ER - POA Present On Arrival: None Results - Lab Results Lab Results: 11/16/17 11/16/17 11/16/17 12:45 12:45 11:41 WBC RBC Hgb Hct MCV MCH MCHC RDW Plt Count MPV Neut % (Auto) Lymph % (Auto) [place] % (Auto) Eos % (Auto) Baso % (Auto) Neut # (Auto) Lymph # (Auto) [place] # (Auto) Eos # (Auto) Baso # (Auto) Sodium Potassium Chloride Carbon Dioxide Anion Gap BUN Creatinine Est GFR ( Amer) Est GFR (Non-Af Amer) Random Glucose Calcium Beta HCG, Quant < 2.39 Urine Color Yellow Urine Clarity Cloudy Urine pH 5.0 Ur Specific [place] 1.020 Urine Protein Negative Urine Glucose (UA) Neg Urine Ketones Negative Urine Blood Large Urine Nitrate Negative Urine Bilirubin Negative Urine Urobilinogen 0.2-1.0 Ur Leukocyte Esterase Neg Urine RBC (Auto) 24 H Urine Microscopic WBC 2 Ur Squamous Epith Cells 10 H Urine Opiates Screen Negative Urine Methadone Screen Negative Ur Barbiturates Screen Negative Ur Phencyclidine Scrn Negative Ur Amphetamines Screen Negative U Benzodiazepines Scrn Positive U Oth Cocaine Metabols Negative U Cannabinoids Screen Negative 11/16/17 11/16/17 11:41 11:41 WBC 7.3 RBC 5.12 Hgb 14.5 Hct 42.5 MCV 83.0 D MCH 28.4 MCHC 34.2 RDW 13.0 Plt Count 338 MPV 8.3 Neut % (Auto) 67.0 Lymph % (Auto) 20.2 Churchill % (Auto) 9.6 Eos % (Auto) 2.9 Baso % (Auto) 0.3 Neut # (Auto) 4.9 Lymph # (Auto) 1.5 Churchill # (Auto) 0.7 Eos # (Auto) 0.2 Baso # (Auto) 0.0 Sodium 140 Potassium 4.3 Chloride 103 Carbon Dioxide 26 Anion Gap 15 BUN 13 Creatinine 0.8 Est GFR ( Amer) > 60 Est GFR (Non-Af Amer) > 60 Random Glucose 82 Calcium 9.8 Beta HCG, Quant Urine Color Urine Clarity Urine pH Ur Specific [place] Urine Protein Urine Glucose (UA) Urine Ketones Urine Blood Urine Nitrate Urine Bilirubin Urine Urobilinogen Ur Leukocyte Esterase Urine RBC (Auto) Urine Microscopic WBC Ur Squamous Epith Cells Urine Opiates Screen Urine Methadone Screen Ur Barbiturates Screen Ur Phencyclidine Scrn Ur Amphetamines Screen U Benzodiazepines Scrn U Oth Cocaine Metabols U Cannabinoids Screen
[2017-11-16 13:21] LABS: BARBITURATES, UR NEGATIVE (NEGATIVE); BENZODIAZEPINES, UR POSITIVE (NEGATIVE); OPIATES, UR NEGATIVE (NEGATIVE); PHENCYCLIDINE, UR NEGATIVE (NEGATIVE)
[2017-11-16 13:42] VITALS: BP 105/71; PULSE 80
[2017-11-16 14:09] VITALS: O2SAT 98
--- NOTE | 2017-11-16 16:10 | US ---
Date of service: 11/16/2017 HISTORY: vag bleeding, lower abd pain ; last which appears reported 09/23/2017 suggesting estimated gestational age of 7 weeks 5 days currently. COMPARISON: None available. TECHNIQUE: Transabdominal and transvaginal pelvic ultrasound was performed with longitudinal and transverse images submitted for interpretation. FINDINGS: UTERUS: Measures 7.6 x 4.6 x 6.4 cm. Normal in size and appearance, anteverted. A small echo lucency is appreciated 5 mm greatest dimension at the anterior mid fundus suggestive of a a small mural fibroid. There no additional myometrial findings. ENDOMETRIUM: Measures 7.0 mm in diameter. No suspicious findings. No intrauterine gestation identified either. CERVIX: Nabothian cysts identified at the posterior high cervix. RIGHT OVARY: Measures 2.2 x 1.0 x 1.8 cm. No solid mass. Normal flow. LEFT OVARY: Measures 3.1 x 1.8 x 2.5 cm. No solid mass. Normal flow. FREE FLUID: No significant free fluid noted. OTHER FINDINGS: None. IMPRESSION: No visible intrauterine gestation appreciable. An ectopic gestation is not clearly identified but is not completely excluded either. Still, a nonvisualized viable intrauterine gestation is possible though menstrual dates suggested 1 should be visible this point given estimated gestational age of 7 weeks 5 days. Serial beta-hCG analysis is advised follow-up was well as transvaginal ultrasound 1 week.
== END 2017-11-16 13:42 | disposition home or self-care (01) ==
LOC: H.ER 10:31
DX: R10.2 Pelvic and perineal pain (principal); N91.0 Primary amenorrhea; Z86.59 Personal history of other mental and behavioral disorders; Z88.5 Allergy status to narcotic agent

== ENCOUNTER 2018-05-16 18:51 | Emergency (ER) | payer OTHER ==
[2018-05-16 18:51] VITALS: BMI 28.3
[2018-05-16 19:20] VITALS: TEMP 98.6; O2SAT 98
[2018-05-16] MEDS ORDERED: Sodium Chloride 0.9% 1,000 ML IV STA (20:41)
--- NOTE | 2018-05-16 21:18 | ED PDOC ---
HPI: General Adult Time Seen by Provider: 05/16/18 19:28 Chief Complaint (Nursing): Pain, Chronic Chief Complaint (Provider): Generalized Pain History Per: Patient History/Exam Limitations: no limitations Onset/Duration Of Symptoms: Persistent (chronic), Worse Since (x1 week) Current Symptoms Are (Timing): Still Present Additional Complaint(s): 28 year old female with a history of Lupus presents to the ED for evaluation of chronic generalized body pain worsening the past week associated with weight gain. She states the pain increases with any sort of movement. Patient notes she is not compliant with a retail project merchandiser but acknowledges that she needs to, just has not made the time to. Otherwise denies fever and chills. PMD: Tremaine Dobbs Past Medical History Reviewed: Historical Data, Nursing Documentation, Vital Signs Vital Signs: Last Vital Signs Temp 98.6 F 05/16/18 19:17 Pulse 112 H 05/16/18 19:17 Resp 20 05/16/18 19:17 BP 115/82 05/16/18 19:17 Pulse Ox 98 05/16/18 19:17 - Medical History PMH: Anxiety, Bipolar Disorder, Depression Denies: Diabetes, Hepatitis, HIV, HTN, Seizures, Sexually Transmitted Disease Other PMH: Lupus - Surgical History Surgical History: (x 2) - Family History Family History: States: Unknown Family Hx - Social History Current smoker - smoking cessation education provided: No Alcohol: None Drugs: Denies - Immunization History Hx Tetanus Toxoid Vaccination: No Hx Influenza Vaccination: No Hx Pneumococcal Vaccination: No - Home Medications Home Medications: Ambulatory Orders Medication Instructions Recorded Sertraline [Zoloft] 200 mg PO HS 10/19/14 Albuterol HFA [Ventolin HFA 90 2 puff IH [id number] PRN #1 bottle 03/12/15 mcg/actuation (8 g)] Azithromycin [Zithromax Z-Rush] 250 mg PO DAILY #4 tab 03/12/15 Ibuprofen [Motrin] 600 mg PO Q6 #20 tab 01/02/16 Benzocaine/Menthol [Sore Throat 1 each MM Q6 PRN #30 lozenge 05/19/16 Lozenge] guaiFENesin/Dextromethorphan 5 ml PO Q6 PRN #100 ml 05/19/16 [guaiFENesin-DM] Famotidine [Pepcid] 20 mg PO Q12 #20 tab 09/03/16 Vitamin B Complex [B Complex] 1 each PO DAILY #30 tablet NS 12/27/16 Naproxen [Naprosyn] 500 mg PO BID PRN #15 tablet 04/11/17 Oseltamivir Phosphate [Tamiflu] 75 mg PO BID #9 capsule 04/11/17 Promethazine/Codeine 5 ml PO Q6 PRN #100 ml 04/11/17 [Phenergan/Codeine Oral Syrup] Benzonatate [Tessalon Perles] 100 mg PO BID PRN 5 Days sgl 04/13/17 Ibuprofen [Motrin] 600 mg PO TID 7 Days tab 04/13/17 Promethazine/Codeine 5 ml PO Q6 PRN 3 Days udc 04/13/17 [Phenergan/Codeine Oral Syrup] Meclizine [Meclizine*] 25 mg PO Q6 PRN #20 tab 09/01/17 Naproxen [Naprosyn] 500 mg PO BID PRN #15 tablet 09/01/17 Cyclobenzaprine [Cyclobenzaprine 10 mg PO BID #15 tab 09/08/17 HCl] clonazePAM [clonAZEPAM] 0.5 mg PO BID PRN #4 tab 10/08/17 traMADol [Ultram] 50 mg PO Q6 PRN #12 tab 05/16/18 - Allergies Allergies/Adverse Reactions: Allergies Allergy/AdvReac Type Severity Reaction Status Date / Time metoclopramide HCl Allergy RASH Verified 05/16/18 20:56 [From Reglan] ketorolac [From Toradol] AdvReac HEADACHE Verified 05/16/18 20:56 Review of Systems ROS Statement: Except As Marked, All Systems Reviewed And Found Negative Constitutional: Positive for: Other (generalized body pain worse with any movement; weight gain). Negative for: Fever, Chills Physical Exam - Reviewed Nursing Documentation Reviewed: Yes Vital Signs Reviewed: Yes - Physical Exam Appears: Positive for: Uncomfortable Head Exam: Positive for: ATRAUMATIC, NORMOCEPHALIC Skin: Positive for: Rash (malar rash to face) Eye Exam: Positive for: Normal appearance ENT: Positive for: Normal ENT Inspection Neck: Positive for: Normal, Painless ROM, Supple Cardiovascular/Chest: Positive for: Regular Rate, Rhythm Respiratory: Positive for: Normal Breath Sounds. Negative for: Accessory Muscle Use, Respiratory Distress Gastrointestinal/Abdominal: Positive for: Normal Exam, Soft. Negative for: Tenderness Back: Positive for: Normal Inspection. Negative for: L CVA Tenderness, R CVA Tenderness Extremity: Positive for: Normal ROM (actively of all extremities). Negative for: Tenderness, Swelling Neurologic/Psych: Positive for: Alert, Oriented (x3). Negative for: Motor/Sensory Deficits - Laboratory Results Result Diagrams: 05/16/18 21:17 05/16/18 21:17 - ECG O2 Sat by Pulse Oximetry: 98 (RA) Pulse Ox Interpretation: Normal Medical Decision Making Medical Decision Making: Time: 2029 Initial Impression: 28 year old female with generalized pain in setting of known lupus Initial Plan: --CMP --Creatine phosphokinase chem --Lact acid --CBC with differential --ESR --Flexeril 10mg PO --Normal saline IV --SOLU-Medrol 125mg IVP --Ultram 50mg PO --Urinalysis 2233 Labs show no clinically significant abnormalities. Reinforced need for patient to follow up with retail project merchandiser, and she verbalized that she understands and agrees. Stable for discharge with diagnosis of Lupus. Scribe Attestation: Documented by Niki Sheriff, acting as a scribe for Guru Melendez MD. Provider Scribe Attestation: All medical record entries made by the Scribe were at my direction and personally dictated by me. I have reviewed the chart and agree that the record accurately reflects my personal performance of the history, physical exam, medical decision making, and the department course for this patient. I have also personally directed, reviewed, and agree with the discharge instructions and disposition. Disposition - Clinical Impression Clinical Impression: Lupus - Patient ED Disposition Is Patient to be Admitted: No Counseled Patient/Family Regarding: Studies Performed, Diagnosis, Need For Followup - Disposition Disposition: Routine/Home Disposition Time: 22:33 Condition: STABLE Prescriptions: traMADol [Ultram] 50 mg PO Q6 PRN #12 tab PRN Reason: body pain Forms: [employer] (Icelandic)
[2018-05-16 21:23] LABS: BASO # 0.1 K/uL (0.0-0.2); BASO % 0.6 % (0.0-2.0); EOS # 0.5 K/uL (0.0-0.7); HEMOGLOBIN 12.5 g/dL (12.0-16.0); LYMPH # 2.1 K/uL (1.0-4.3); LYMPH % 21.4 % (20.0-40.0); MEAN CORPUSCULAR HEMOGLOBIN 28.2 pg (27.0-31.0); MONO # 0.9 K/uL (0.0-0.8); MONO % 9.4 % (0.0-10.0); NEUT # 6.2 K/uL (1.8-7.0); NEUT % 63.6 % (50.0-75.0); NRBC % 0.1 % (0.0-0.0); RBC 4.44 Mil/uL (3.80-5.20); RED CELL DISTRIBUTION WIDTH 13.1 % (11.5-14.5); WHITE BLOOD COUNT 9.7 K/uL (4.8-10.8)
[2018-05-16 21:28] LABS: SQUAMOUS EPITHIAL 9 /hpf (0-5); URINE BILIRUBIN NEGATIVE (NEGATIVE); URINE BLOOD NEGATIVE (NEGATIVE); URINE CLARITY CLOUDY (Clear); URINE COLOR YELLOW (YELLOW); URINE GLUCOSE (UA) NEG (NEGATIVE); URINE LEUKOCYTE ESTERASE TRACE Leu/uL (Negative); URINE PROTEIN 30 mg/dL (NEGATIVE); URINE UROBILINOGEN 0.2-1.0 mg/dL (0.2-1.0)
[2018-05-16 21:35] LABS: ALB/GLOB RATIO 1.1 (1.0-2.1); ALBUMIN 3.8 g/dL (3.5-5.0); ALT/SGPT 34 U/L (9-52); AST/SGOT 36 U/L (14-36); BLOOD UREA NITROGEN 15 mg/dl (7-17); CALCIUM 9.1 mg/dL (8.4-10.2); GFR NON-AFRICAN AMERICAN > 60
[2018-05-16 22:35] VITALS: BP 127/79; PULSE 94; RESP 18
== END 2018-05-16 23:13 | disposition home or self-care (01) ==
LOC: H.ER 18:51
DX: M32.9 Systemic lupus erythematosus, unspecified (principal); Z86.59 Personal history of other mental and behavioral disorders; Z79.899 Other long term (current) drug therapy; Z88.8 Allergy status to other drugs, medicaments and biological substances
CPT/HCPCS: 80053; 81003; 81025; 82550; 83605; 85025; 85651; 96361; 96374; 99283; J2930; J7030

== ENCOUNTER 2018-05-24 06:08 | Emergency (ER) | payer OTHER ==
[2018-05-24 06:29] VITALS: BMI 29.2
[2018-05-24 06:34] VITALS: PULSE 90; RESP 18; TEMP 97.8
--- NOTE | 2018-05-24 08:02 | ED PDOC ---
HPI: General Adult Time Seen by Provider: 05/24/18 07:22 Chief Complaint (Nursing): Pain, Chronic Chief Complaint (Provider): Pain, Chronic History Per: Patient History/Exam Limitations: no limitations Onset/Duration Of Symptoms: Persistent (x1 week) Current Symptoms Are (Timing): Still Present Additional Complaint(s): 28 year old female with past history of lupus since age 17, presents to the emergency department with a complaint of persistent diffuse body aches ass ociated with fever (tmax: 101.0 degrees). Patient states she was seen in this ED on 05/16 for a lupus flare-up then discharged with Tramadol and a muscle relaxer which has not alleviated symptoms. Patient has a pending appointment with her animator in 06/2018. Otherwise, she denies chest pain, shortness of breath, or further medical complaints. PCP: Dr. Elisabeth Rangel Past Medical History Reviewed: Historical Data, Nursing Documentation, Vital Signs Vital Signs: Last Vital Signs Temp 97.8 F 05/24/18 06:29 Pulse 90 05/24/18 06:29 Resp 18 05/24/18 06:29 BP 125/84 05/24/18 06:29 Pulse Ox 94 L 05/24/18 06:29 - Medical History PMH: Anxiety, Bipolar Disorder, Depression Denies: Diabetes, Hepatitis, HIV, HTN, Seizures, Sexually Transmitted Disease - Surgical History Surgical History: (x 2) - Family History Family History: States: Unknown Family Hx - Social History Current smoker - smoking cessation education provided: No Alcohol: None Drugs: Denies - Immunization History Hx Tetanus Toxoid Vaccination: No Hx Influenza Vaccination: No Hx Pneumococcal Vaccination: No - Home Medications Home Medications: Ambulatory Orders Medication Instructions Recorded Sertraline [Zoloft] 200 mg PO HS 10/19/14 Cyclobenzaprine [Cyclobenzaprine 10 mg PO TID PRN #15 tab 05/16/18 HCl] traMADol [Ultram] 50 mg PO Q6 PRN #12 tab 05/16/18 Methylprednisolone [Medrol Dosepak] 4 mg PO ASDIR #1 pkg 05/24/18 - Allergies Allergies/Adverse Reactions: Allergies Allergy/AdvReac Type Severity Reaction Status Date / Time metoclopramide HCl Allergy RASH Verified 05/16/18 20:56 [From Reglan] ondansetron [From Zofran] Allergy RASH Verified 05/24/18 06:28 Review of Systems ROS Statement: Except As Marked, All Systems Reviewed And Found Negative Constitutional: Positive for: Fever, Other (diffuse bodyaches) Cardiovascular: Negative for: Chest Pain Respiratory: Negative for: Shortness of Breath Physical Exam - Reviewed Nursing Documentation Reviewed: Yes Vital Signs Reviewed: Yes - Physical Exam Appears: Positive for: Non-toxic, No Acute Distress Head Exam: Positive for: ATRAUMATIC, NORMAL INSPECTION, NORMOCEPHALIC Skin: Positive for: Normal Color Eye Exam: Positive for: Normal appearance, EOMI, PERRL ENT: Positive for: Normal ENT Inspection. Negative for: Pharyngeal Erythema, Tonsillar Swelling Neck: Positive for: Normal, Painless ROM, Supple Cardiovascular/Chest: Positive for: Regular Rate, Rhythm Respiratory: Positive for: Normal Breath Sounds. Negative for: Respiratory Distress Pulses-Radial (L): 3+/4+ Pulses-Radial (R): 3+/4+ Gastrointestinal/Abdominal: Positive for: Normal Exam, Soft. Negative for: Tenderness Back: Positive for: Normal Inspection Extremity: Positive for: Normal ROM (upper/lower). Negative for: Pedal Edema (bilaterally), Calf Tenderness (bilaterally) Neurologic/Psych: Positive for: Alert, Oriented (x3). Negative for: Motor/Sens ory Deficits, Aphasia - Laboratory Results Result Diagrams: 05/24/18 08:30 05/24/18 08:30 - ECG O2 Sat by Pulse Oximetry: 94 (RA) Pulse Ox Interpretation: Normal - Progress Re-evaluation Time: 09:58 Condition: Re-examined, Improved Medical Decision Making Medical Decision Making: Initial Impression: General bodyaches Differential diagnosis: lupus flare-up; other rheumatoid arthritis conditions; fibromyalgia; less-likely rhabdomyolysis. Initial Plan: * Labs * Solu-medrol 125mg IVP * Toradol 30mg IVP Scribe Attestation: Documented by Coral Costa, acting as a scribe for Moe Weems MD. Provider Scribe Attestation: All medical record entries made by the Scribe were at my direction and personally dictated by me. I have reviewed the chart and agree that the record accurately reflects my personal performance of the history, physical exam, medical decision making, and the department course for this patient. I have also personally directed, reviewed, and agree with the discharge instructions and disposition. Disposition - Clinical Impression Clinical Impression: Lupus - Patient ED Disposition Is Patient to be Admitted: No Doctor Will See Patient In The: Office Counseled Patient/Family Regarding: Studies Performed, Diagnosis, Need For Followup - Disposition Referrals: Seymour León MD [Staff Provider] - Disposition: Routine/Home Disposition Time: 09:59 Condition: GOOD Additional Instructions: DEACON REHMAN, thank you for letting us take care of you today. Your provider was Moe Weems MD and you were treated for LUPUS FLARE UP. The emergency medical care you received today was directed at your acute symptoms. If you were prescribed any medication, please fill it and take as directed. It may take several days for your symptoms to resolve. Return to the Emergency Department if your symptoms worsen, do not improve, or if you have any other problems. Please contact your doctor or call one of the physicians/clinics you have been referred to that are listed on the Patient Visit Information form that is included in your discharge packet. Bring any paperwork you were given at discharge with you along with any medications you are taking to your follow up visit. Our treatment cannot replace ongoing medical care by a primary care provider outside of the emergency department. Thank you for allowing the [facility] team to be part of your care today. If you had an X-Ray or CT scan: A Radiologist will review the ED reading if any change in treatment is needed we will contact you. If you had a blood, urine, or wound culture: It will take several days for the results, if any change in treatment is needed we will contact you. If you had an STI test: It will take 48 hours for the results. Please call after 1 week if you have not heard back. Prescriptions: Methylprednisolone [Medrol Dosepak] 4 mg PO ASDIR #1 pkg Instructions: Lupus
[2018-05-24 08:34] LABS: BASO # 0.1 K/uL (0.0-0.2); BASO % 0.6 % (0.0-2.0); EOS # 0.4 K/uL (0.0-0.7); EOS % 4.5 % (0.0-4.0); HEMOGLOBIN 13.2 g/dL (12.0-16.0); LYMPH # 1.5 K/uL (1.0-4.3); LYMPH % 17.7 % (20.0-40.0); MEAN CELL VOLUME 82.1 fl (81.0-99.0); MEAN CORPUSCULAR HEMOGLOBIN 27.5 pg (27.0-31.0); MEAN CORPUSCULAR HGB CONC 33.5 g/dL (33.0-37.0); MEAN PLATELET VOLUME 7.8 fl (7.2-11.7); MONO # 0.9 K/uL (0.0-0.8); MONO % 9.9 % (0.0-10.0); NEUT # 5.9 K/uL (1.8-7.0); NEUT % 67.3 % (50.0-75.0); NRBC % 0.1 % (0.0-0.0); RBC 4.79 Mil/uL (3.80-5.20); RED CELL DISTRIBUTION WIDTH 12.9 % (11.5-14.5); WHITE BLOOD COUNT 8.7 K/uL (4.8-10.8)
[2018-05-24 08:56] LABS: BLOOD UREA NITROGEN 18 mg/dl (7-17); CALCIUM 9.1 mg/dL (8.4-10.2); GFR NON-AFRICAN AMERICAN > 60
[2018-05-24 11:11] VITALS: BP 120/70; O2SAT 99
== END 2018-05-24 11:09 | disposition home or self-care (01) ==
LOC: H.ER 06:08
DX: M32.9 Systemic lupus erythematosus, unspecified (principal)
CPT/HCPCS: 80048; 81025; 82550; 85025; 85651; 96374; 96375; 99284; J1885; J2930

== ENCOUNTER 2018-05-29 15:37 | Emergency (ER) | payer OTHER ==
[2018-05-29 15:38] VITALS: BMI 29.2
[2018-05-29 15:44] VITALS: BP 124/83; PULSE 90; RESP 20; TEMP 97.8; O2SAT 98
[2018-05-29] MEDS ORDERED: Oxycodone/Acetaminophen 5/325 mg Tab PO ONE (16:19)
--- NOTE | 2018-05-29 16:23 | ED PDOC ---
Lower Extremity Pain/Injury Time Seen by Provider: 05/29/18 16:11 Chief Complaint (Nursing): Lower Extremity Problem/Injury Chief Complaint (Provider): Lower Extremity Problem/Injury History Per: Patient History/Exam Limitations: no limitations Onset/Duration Of Symptoms: Mins (just prior to arrival) Current Symptoms Are (Timing): Still Present Severity: Moderate Pain Scale Rating Of: 10 Additional Complaint(s): 28 year old female with a past medical history of lupus presents to the ED for an evaluation of left ankle pain that started just prior to arrival. Patient states that she was running with her little cousin when she suddenly felt her left ankle twist. Patient reports having pain at a level 10/10 and swelling to the left ankle since then. Patient reports taking aleve just prior to arrival. Patient denies having numbness or tingling. PMD: None provided Past Medical History Reviewed: Historical Data, Nursing Documentation, Vital Signs Vital Signs: Last Vital Signs Temp 97.8 F 05/29/18 15:41 Pulse 90 05/29/18 15:41 Resp 20 05/29/18 15:41 BP 124/83 05/29/18 15:41 Pulse Ox 98 05/29/18 15:41 ANITHA Report Viewed: Yes - Medical History PMH: Anxiety, Bipolar Disorder, Depression Denies: Diabetes, Hepatitis, HIV, HTN, Seizures, Sexually Transmitted Disease Other PMH: lupus - Surgical History Surgical History: (x 2) - Family History Family History: States: No Known Family Hx - Social History Current smoker - smoking cessation education provided: No Alcohol: None Drugs: Denies - Immunization History Hx Tetanus Toxoid Vaccination: No Hx Influenza Vaccination: No Hx Pneumococcal Vaccination: No - Home Medications Home Medications: Ambulatory Orders Medication Instructions Recorded Sertraline [Zoloft] 200 mg PO HS 10/19/14 traMADol [Ultram] 50 mg PO Q6 PRN #12 tab 05/16/18 Cyclobenzaprine [Cyclobenzaprine 10 mg PO TID PRN #15 tab 05/24/18 HCl] Methylprednisolone [Medrol Dosepak] 4 mg PO ASDIR #1 pkg 05/24/18 Naproxen 500 mg PO BID #30 tab 05/24/18 Ibuprofen [Motrin Tab] 800 mg PO Q6 PRN 7 Days tab 05/29/18 traMADol [Ultram] 50 mg PO Q6 PRN 2 Days tab 05/29/18 - Allergies Allergies/Adverse Reactions: Allergies Allergy/AdvReac Type Severity Reaction Status Date / Time metoclopramide HCl Allergy RASH Verified 05/16/18 20:56 [From Reglan] ondansetron [From Zofran] Allergy RASH Verified 05/24/18 06:28 Review of Systems ROS Statement: Except As Marked, All Systems Reviewed And Found Negative Musculoskeletal: Positive for: Other (left ankle pain) Neurological: Negative for: Numbness ((-) tingling) Physical Exam - Reviewed Nursing Documentation Reviewed: Yes Vital Signs Reviewed: Yes - Physical Exam Appears: Positive for: Non-toxic, Uncomfortable Head Exam: Positive for: ATRAUMATIC, NORMOCEPHALIC Skin: Positive for: Normal Color, Warm, Dry Extremity: Positive for: Tenderness (tenderness on palpation of left lateral malleolus with decreased ROM with flexion and extension. Normal ROM of toes and knee. DP 1+, capillary refil <2 seconds. ), Swelling (edema of left lateral malleolus) Neurological/Psych: Positive for: Awake, Alert, Oriented (3x) - ECG O2 Sat by Pulse Oximetry: 98 (RA) Pulse Ox Interpretation: Normal Medical Decision Making Medical Decision Makin:11 Initial impression: 28 year old female with left ankle pain Initial plan: * XRay ankle left 3 views * percocet 5/325 mg tab 1 tab PO once * reevaluation 16:45 XRay ankle left read and reviewed by me. No fracture or dislocation appreciated. Patient is requesting a tramadol refill for pain as she has run out. Patient states she "has a high pain tolerance". Patient searched on [employer], last filled on 05/17/2018 a prescription of tramadol #12. No previous narcotic prescriptions. Patient noted to have a chronic prescription for alprazolam and diazepam. Patient is advised of addictive properties of tramadol and strongly encouraged to take tramadol as needed only for sever pain. Patient will be discharged home with a prescription for tramadol (for 2x days.) Scribe Attestation: Documented byAlicia Hood, acting as a scribe for Latricia Alonzo PA-C. Provider Scribe Attestation: All medical record entries made by the Scribe were at my direction and personally dictated by me. I have reviewed the chart and agree that the record accurately reflects my personal performance of the history, physical exam, medical decision making, and the department course for this patient. I have also personally directed, reviewed, and agree with the discharge instructions and disposition. Disposition - Clinical Impression Clinical Impression: Ankle sprain - Disposition Referrals: Alvarado Siddiqi MD [Staff Provider] - Disposition Time: 17:00 Condition: STABLE Additional Instructions: Follow up with podiatry for persistent pain. Rest, elevate leg, ice it. Use Ibuprofen or Tylenol for pain. Use air cast and crutches for comfort. Prescriptions: Ibuprofen [Motrin Tab] 800 mg PO Q6 PRN 7 Days tab PRN Reason: Pain, Moderate (4-7) traMADol [Ultram] 50 mg PO Q6 PRN 2 Days tab PRN Reason: Pain, Severe (8-10) Instructions: Ankle Sprain (DC) Forms: [employer] ([place]) Print Language: PERSIAN
[2018-05-29] MEDS ORDERED: Oxycodone/Acetaminophen 5/325 mg Tab ONE (16:33)
--- NOTE | 2018-05-29 18:39 | RAD ---
Date of service: 05/29/2018 HISTORY: s/p eversion injury, R/o fracture COMPARISON: None available. FINDINGS: BONES: Normal. No fracture. JOINTS: Normal. No osteoarthritis. SOFT TISSUE: Normal. OTHER FINDINGS: None . IMPRESSION: Normal Bone Xray.
== END 2018-05-29 17:19 | disposition home or self-care (01) ==
LOC: H.ER 15:37
DX: S93.402A Sprain of unspecified ligament of left ankle, initial encounter (principal); W18.39XA Other fall on same level, initial encounter; Z86.59 Personal history of other mental and behavioral disorders; L93.0 Discoid lupus erythematosus; Z88.8 Allergy status to other drugs, medicaments and biological substances